=== PATIENT | male | born 1945 | race Caucasian/White ===

== ENCOUNTER 2022-03-05 14:08 | Emergency (ER) | payer OTHER ==
[2022-03-05] MEDS ORDERED: DIAZEPAM 5 MG TABLET ONE (16:33)
[2022-03-05] MEDS ORDERED: HYDROCODONE/APAP 10/325 TAB ONE (16:34)
[2022-03-05 17:12] LABS: Absolute Lymphocytes (CBC) 1.1 K/uL (0.7-4.9); Hematocrit 44.1 % (39.6-49.0); Lymphocytes % 8.6 % (15.3-44.8); MPV 8.6 fL (7.6-11.3)
[2022-03-05 17:29] LABS: Potassium 3.7 mmol/L (3.5-5.1)
--- NOTE | 2022-03-05 17:58 | RAD REPORT ---
EXAM DESCRIPTION: CT - CTHCSPWOC - 03/05/2022 5:42 pm CLINICAL HISTORY: Trauma, head and neck injury. headache, neck pain COMPARISON: CTSTONE PROTOCOL dated 01/18/2015 TECHNIQUE: Axial 5 mm thick images of the head were obtained. Axial 2 mm thick images of the cervical spine were obtained with sagittal and coronal reconstruction images generated and reviewed. All CT scans are performed using dose optimization technique as appropriate and may include automated exposure control or mA/KV adjustment according to patient size. FINDINGS: CT HEAD WITHOUT CONTRAST: No acute hemorrhage, hydrocephalus or extra-axial collection is identified.No areas of brain edema or midline shift. Chronic small vessel ischemic changes. The paranasal sinuses and mastoids are clear.The calvarium is intact. CT CERVICAL SPINE WITHOUT CONTRAST: No fracture or subluxation.No prevertebral soft tissues swelling is identified. Multiple lytic lesion s present within the vertebral bodies are nonaggressive in appearance. Mild cervical spondylosis IMPRESSION: No acute intracranial or cervical spine findings.
[2022-03-05 18:17] LABS: SARS-COV-2 RT PCR NEGATIVE (NEGATIVE)
--- NOTE | 2022-03-05 19:04 | EDPHYS ---
Physician Documentation [facility] Name: Michele Kent Jr Age: 76 yrs Sex: Male : 1945 Arrival Date: 03/05/2022 Time: 14:12 Bed 24 Private MD: MALLIKA Physician Maury Hill HPI: 03/05 16:23 This 76 yrs old Male presents to ER via Ambulatory with complaints of Headache. jmm 16:23 The patient complains of pain to the left temporal area, left muslim and left ear. jmm Onset: The symptoms/episode began/occurred gradually, 3 day(s) ago. Is a 76-year-old male with no chronic medical conditions presents emerged part with complaints of left-sided headache which radiates down his neck and down his left arm. 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 Patient states he will occasionally get similar headaches on the right side but this episode is different in which there is radiation of pain down the neck and left arm. Patient denies chest pain or shortness of breath.. Historical: - Allergies: 16:02 No Known Allergies; vg1 - Home Meds: 16:02 Aspirin Oral [Active]; vg1 - PMHx: 16:02 None; vg1 - Immunization history:: Client reports receiving the 2nd dose of the Covid vaccine. - Social history:: Smoking status: Patient denies any tobacco usage or history of. ROS: 16:23 Constitutional: Negative for fever, chills, and weight loss, Cardiovascular: Negative jmm for chest pain, palpitations, and edema, Respiratory: Negative for shortness of breath, cough, wheezing, and pleuritic chest pain. 16:23 Neuro: Positive for headache. 16:23 All other systems are negative. Exam: 16:23 Constitutional: This is a well developed, well nourished patient who is awake, alert, jmm and in no acute distress. Head/Face: atraumatic. Eyes: EOMI, no conjunctival erythema appreciated ENT: Moist Mucus Membranes 16:23 Chest/axilla: Normal chest wall appearance and motion. Cardiovascular: Regular rate and rhythm. No edema appreciated Respiratory: Normal respirations, no respiratory distress appreciated Abdomen/GI: Non distended Back: Normal ROM Skin: General appearance color normal 16:23 Neck: External neck: tenderness, that is mild, Left paraspinal. 16:23 Musculoskeletal/extremity: ROM: intact in all extremities. 16:23 Skin: Appearance: Color: normal in color. 16:23 Neuro: Orientation: is normal, Mentation: is normal, Memory: is normal. 16:23 Psych: Behavior/mood is pleasant, cooperative. Vital Signs: 15:56 BP 197 / 110 RA; Pulse 90; Resp 18; Temp 98.6; Pulse Ox 97% on R/A; Weight 89.81 kg; vg1 Height 5 ft. 10 in. (177.80 cm); Pain 10/10; 18:37 BP 144 / 90; Pulse 86; Resp 16; Pulse Ox 99% on R/A; Pain 6/10; hb 15:56 Body Mass Index 28.41 (89.81 kg, 177.80 cm) vg1 MDM: 16:23 Patient medically screened. [facility] [place] 19:03 Data reviewed: vital signs, nurses notes. ED course: Patient is alert nontoxic in [facility] appearance in the ED. Patient is afebrile. I do not currently suspect meningitis. CT was negative for any acute process. Patient states he does feel much better. Patient does have increased range of motion of the neck. Symptoms appear most likely musculoskeletal. Patient otherwise given strict return precautions. Patient understands agrees plan of care.. 03/05 16:33 Order name: CBC with Diff; Complete Time: 17:19 [facility] 03/05 16:33 Order name: BMP; Complete Time: 17:38 [facility] 03/05 16:30 Order name: CT Head C Spine; Complete Time: 18:02 [facility] 03/05 17:19 Order name: COVID-19/FLU A+B; Complete Time: 18:28 [facility] 03/05 17:19 Order name: [place] Screen Profile; Complete Time: 18:02 [facility] 03/05 16:33 Order name: Saline Lock; Complete Time: 17:08 [facility] Administered Medications: 16:44 Drug: [place] (HYDROcodone-acetaminophen) 10 mg-325 mg 1 tabs Route: PO; hb 17:08 Follow up: Response: No adverse reaction hb 16:44 Drug: Valium (diazepam) 5 mg Route: PO; hb 17:08 Follow up: Response: No adverse reaction hb Disposition Summary: 03/05/22 19:04 Discharge Ordered Location: Home jmm Condition: Stable jmm Diagnosis - Strain of muscle, fascia and tendon at neck level jmm Followup: jmm - With: Private Physician - When: 2 - 3 days - Reason: Recheck today's complaints, Continuance of care, Re-evaluation by your physician Discharge Instructions: - Discharge Summary Sheet jmm - Cervical Strain and Sprain Rehab-SportsMed jm Forms: - Medication Reconciliation Form [facility] - Thank You Letter [facility] - Antibiotic Education [facility] - Prescription Opioid Use [facility] Prescriptions: - Zanaflex 4 mg Oral Tablet - take 1 tablet by ORAL route every 8 hours As needed; 20 tablet; Refills: 0, [facility] Product Selection Permitted Addendum: 03/07/2022 13:39 Co-signature as Attending Physician, Maury Hill MD I agree with the assessment and c jean-baptiste plan of care. Signatures: Dispatcher [employer] Maury Strickland MD MD cha Mickail, Joel, PA PA jmm Baxter, Heather, RN Kelsy Glass RN RN vg1
--- NOTE | 2022-03-05 19:04 | ER ---
Nurse's Notes [facility] Name: Michele Kent Jr Age: 76 yrs Sex: Male : 1945 Arrival Date: 03/05/2022 Time: 14:12 Bed 24 Private MD: Diagnosis: Strain of muscle, fascia and tendon at neck level Presentation: 03/05 15:56 Chief complaint: Patient states: stiff neck and h/a x 3 days; denies NV. Coronavirus vg1 screen: Vaccine status: Patient reports receiving the 2nd dose of the covid vaccine. Client denies travel out of the [place] in the last 14 days. Ebola Screen: Patient negative for fever greater than or equal to 101.5 degrees Fahrenheit, and additional compatible Ebola Virus Disease symptoms. Initial Sepsis Screen: Does the patient meet any 2 criteria? No. Patient's initial sepsis screen is negative. Does the patient have a suspected source of infection? No. Patient's initial sepsis screen is negative. Risk Assessment: Do you want to hurt yourself or someone else? Patient reports no desire to harm self or others. Onset of symptoms was March 02, 2022. 15:56 Method Of Arrival: Ambulatory vg1 15:56 Acuity: OANH 2 vg1 Triage Assessment: 16:02 Headache History: The patient has had previous headaches and this one is more severe vg1 than previous episodes. General: Appears in no apparent distress. uncomfortable, Behavior is calm, cooperative. Pain: Complains of pain in head and neck Pain currently is 10 out of 10 on a pain scale. Pain began 2-3 days ago. Also complains of no other associated symptoms. Neuro: Level of Consciousness is awake, alert, obeys commands, Oriented to person, place, time, situation, [employer] are equal bilaterally Moves all extremities. Gait is unsteady, Speech is normal, Facial symmetry appears normal, Reports dizziness, headache. Respiratory: Airway is patent Respiratory effort is even, unlabored. GI: Patient currently denies nausea, vomiting. Historical: - Allergies: 16:02 No Known Allergies; vg1 - Home Meds: 16:02 Aspirin Oral [Active]; vg1 - PMHx: 16:02 None; vg1 - Immunization history:: Client reports receiving the 2nd dose of the Covid vaccine. - Social history:: Smoking status: Patient denies any tobacco usage or history of. Screenin:54 Abuse screen: Denies threats or abuse. Denies injuries from another. Nutritional hb screening: No deficits noted. Tuberculosis screening: No symptoms or risk factors identified. Fall Risk None identified. Assessment: 17:08 General: Appears in no apparent distress. Behavior is calm, cooperative. Pain: Pain hb currently is 10 out of 10 on a pain scale. Neuro: Level of Consciousness is awake, alert, obeys commands, Oriented to person, place, time, situation, Reports headache. Cardiovascular: Patient's skin is warm and dry. Respiratory: Respiratory effort is even, unlabored, Respiratory pattern is regular, symmetrical. GI: No signs and/or symptoms were reported involving the gastrointestinal system. : No signs and/or symptoms were reported regarding the genitourinary system. EENT: No signs and/or symptoms were reported regarding the EENT system. Derm: Skin is pink, warm \T\ dry. Musculoskeletal: Reports bilateral neck pain. 18:38 Reassessment: Patient appears in no apparent distress at this time. Patient and/or hb family updated on plan of care and expected duration. Pain level reassessed. Patient is alert, oriented x 3, equal unlabored respirations, skin warm/dry/pink. Vital Signs: 15:56 BP 197 / 110 RA; Pulse 90; Resp 18; Temp 98.6; Pulse Ox 97% on R/A; Weight 89.81 kg; vg1 Height 5 ft. 10 in. (177.80 cm); Pain 10/10; 18:37 BP 144 / 90; Pulse 86; Resp 16; Pulse Ox 99% on R/A; Pain 6/10; hb 15:56 Body Mass Index 28.41 (89.81 kg, 177.80 cm) vg1 ED Course: 14:12 Patient arrived in ED. as 16:02 Triage completed. vg1 16:02 Arm band placed on. vg1 16:18 La Nena Brock, ALEXIA is Primary Nurse. hb 16:22 Cas Barry PA is PHCP. [facility] 16:22 Maury Hill MD is Attending Physician. jmm 17:08 Inserted saline lock: 20 gauge in right forearm, using aseptic technique. Blood hb collected. 17:43 CT Head C Spine In Process Unspecified. EDMS 17:54 Patient has correct armband on for positive identification. hb 19:47 No provider procedures requiring assistance completed. IV discontinued, intact, hb bleeding controlled, No redness/swelling at site. Administered Medications: 16:44 Drug: [place] (HYDROcodone-acetaminophen) 10 mg-325 mg 1 tabs Route: PO; hb 17:08 Follow up: Response: No adverse reaction hb 16:44 Drug: Valium (diazepam) 5 mg Route: PO; hb 17:08 Follow up: Response: No adverse reaction hb Medication: 17:54 VIS not applicable for this client. hb Outcome: 19:04 Discharge ordered by . rosa 19:47 Discharged to home hb 19:47 Condition: stable 19:47 Discharge instructions given to patient, Instructed on discharge instructions, follow up and referral plans. medication usage, Demonstrated understanding of instructions, follow-up care, medications, Prescriptions given X 1. 19:48 Patient left the ED. hb Signatures: Dispatcher [employer] EDMS Cas Barry PA PA jmm Martinez, Amelia as Baxter, Heather, RN RN Kelsy Vigil RN RN vg1
[2022-03-05 20:02] VITALS: TEMP 98.6
[2022-03-05 20:08] VITALS: BP 144/90; O2SAT 99
== END 2022-03-05 19:48 | disposition home or self-care (01) ==
LOC: ER 14:08
DX: S16.1XXA Strain of muscle, fascia and tendon at neck level, initial encounter (principal); Z79.82 Long term (current) use of aspirin
CPT/HCPCS: 85025; 80048; 36415; 86308; 0240U; 70450; 72125; 99284

== ENCOUNTER 2024-04-02 05:05 | Inpatient (IN) | payer OTHER ==
[2024-04-02 05:46] LABS: Absolute Basophils 0.1 K/uL (0-0.5); Absolute Eosinophils 0.1 K/uL (0-0.5); Absolute Lymphocytes (CBC) 1.5 K/uL (0.7-4.9); Absolute Monocytes 0.8 K/uL (0.1-1.3); Absolute Neutrophil 6.2 K/uL (1.8-8.0); Basophils % 0.8 % (0-1.3); Eosinophils % 1.3 % (0-4.4); Hematocrit 32.2 % (39.6-49.0); Lymphocytes % 17.2 % (15.3-44.8); MCH 22.9 pg (27.0-35.0); MCHC 30.9 g/dL (32.0-36.0); MPV 8.6 fL (7.6-11.3); Monocytes % 9.7 % (3.3-12.3); Platelets 275 thou/uL (152-406); RBC Red Blood Cell Count 4.36 M/uL (4.33-5.43); Red Cell Distribution Width 19.6 % (12.1-15.2)
[2024-04-02] MEDS ORDERED: ENOXAPARIN 100 MG/ML SYR SQ ONE (05:59)
[2024-04-02] MEDS ORDERED: DIGOXIN 0.25 MG/ML AMP ONE (05:59)
[2024-04-02] MEDS ORDERED: METOPROLOL TAR 50 MG TAB ONE (05:59)
[2024-04-02] MEDS ORDERED: FUROSEMIDE 40 MG/4 ML VIAL ONE (06:00)
[2024-04-02] MEDS ORDERED: FAMOTIDINE 20 MG/2 ML VIAL IV ONE (06:00)
[2024-04-02] MEDS ORDERED: METOPROLOL TARTRATE 5 MG/5 ML INJ IV ONE (06:00)
[2024-04-02 06:09] LABS: Albumin 2.7 g/dL (3.4-5.0); Albumin/Globulin Ratio 0.6 (1.1-1.8); Anion Gap 11.6 mEq/L (5.0-15.0); Bilirubin Direct 0.2 mg/dL (0-0.2); Bilirubin Indirect, Calculated 0.6 mg/dL (0.2-0.8); Bilirubin Total 0.8 mg/dL (0.2-1.0); Globulin 4.2 g/dL (2.3-3.5); Magnesium 1.7 mg/dL (1.6-2.4); Potassium 3.6 mEq/L (3.5-5.1); Protein, Total 6.9 g/dL (6.4-8.2); Thyroid Stimulating Hormone 1.21 uIU/mL (0.358-3.740); Troponin High Sensitivity 54.5 pg/mL (<58.9)
[2024-04-02 06:13] LABS: PT Prothrombin Time 14.6 SECONDS (9.4-12.5); Protime INR 1.31
--- NOTE | 2024-04-02 06:39 | EDPHYS ---
Physician Documentation [facility] Name: Michele Kent Jr Age: 79 yrs Sex: Male : 1945 Arrival Date: 04/02/2024 Time: 05:05 Bed 7 Private MD: MALLIKA Physician Maury Hill HPI: 04/02 05:44 This 79 yrs old Male presents to ER via Wheelchair with complaints of benita Breathing Difficulty. 05:44 The patient has shortness of breath at rest, with light activity. Onset: The benita symptoms/episode began/occurred 2 week(s) ago. Duration: The symptoms are continuous, and are markedly worse than the original presentation. The patient's shortness of breath is aggravated by exertion, light activity, supine position. Associated signs and symptoms: The patient has no apparent associated signs or symptoms. Severity of symptoms: At their worst the symptoms were moderate in the emergency department the symptoms are unchanged. The patient has experienced similar episodes in the past, several times. Historical: - Allergies: 05:26 No Known Allergies; ha1 - Home Meds: 05:26 Aspirin Oral [Active]; ha1 - PMHx: 05:26 Hypertensive disorder; hard hearing; ha1 - Immunization history:: Adult Immunizations up to date. - Infectious Disease History:: Denies. - Social history:: Smoking status: Patient denies any tobacco usage or history of. ROS: 05:45 Constitutional: Negative for fever, chills, and weight loss, Eyes: Negative for injury, benita pain, redness, and discharge, ENT: Negative for injury, pain, and discharge, Abdomen/GI: Negative for abdominal pain, nausea, vomiting, diarrhea, and constipation, Back: Negative for injury and pain, : Negative for injury, bleeding, discharge, and swelling, MS/Extremity: Negative for injury and deformity, Skin: Negative for injury, rash, and discoloration, Neuro: Negative for headache, weakness, numbness, tingling, and seizure, Psych: Negative for depression, anxiety, suicide ideation, homicidal ideation, and hallucinations, Allergy/Immunology: Negative for hives, rash, and allergies, Endocrine: Negative for neck swelling, polydipsia, polyuria, polyphagia, and marked weight changes, Hematologic/Lymphatic: Negative for swollen nodes, abnormal bleeding, and unusual bruising, 05:45 Neck: Positive for jvd, 05:45 Cardiovascular: Positive for palpitations, 05:45 Respiratory: Positive for shortness of breath, at rest. 05:45 MS/extremity: Positive for swelling, of the right leg and left leg, Exam: 05:45 Constitutional: This is a well developed, well nourished patient who is awake, alert, benita and in no acute distress. Head/Face: Normocephalic, atraumatic. Eyes: Pupils equal round and reactive to light, extra-ocular motions intact. Lids and lashes normal. Conjunctiva and sclera are non-icteric and not injected. Cornea within normal limits. Periorbital areas with no swelling, redness, or edema. ENT: Nares patent. No nasal discharge, no septal abnormalities noted. Tympanic membranes are normal and external auditory canals are clear. Oropharynx with no redness, swelling, or masses, exudates, or evidence of obstruction, uvula midline. Mucous membranes moist. Neck: Trachea midline, no thyromegaly or masses palpated, and no cervical lymphadenopathy. Supple, full range of motion without nuchal rigidity, or vertebral point tenderness. No Meningismus. Respiratory: Lungs have equal breath sounds bilaterally, clear to auscultation and percussion. No rales, rhonchi or wheezes noted. No increased work of breathing, no retractions or nasal flaring. Abdomen/GI: Soft, non-tender, with normal bowel sounds. No distension or tympany. No guarding or rebound. No evidence of tenderness throughout. Back: No spinal tenderness. No costovertebral tenderness. Full range of motion. Male : Normal genitalia with no discharge or lesions. Skin: Warm, dry with normal turgor. Normal color with no rashes, no lesions, and no evidence of cellulitis. MS/ Extremity: Pulses equal, no cyanosis. Neurovascular intact. Full, normal range of motion., bilateral aka Neuro: Awake and alert, GCS 15, oriented to person, place, time, and situation. Cranial nerves II-XII grossly intact. Motor strength 5/5 in all extremities. Sensory grossly intact. Cerebellar exam normal. Normal gait. Psych: Awake, alert, with orientation to person, place and time. Behavior, mood, and affect are within normal limits. 05:45 Chest/axilla: Inspection: normal, Palpation: is normal, Axilla: are normal, Lymph nodes: lymphadenopathy is not appreciated, 05:45 Cardiovascular: Rate: tachycardic, actual rate is 117 bpm, Rhythm: irregularly irregular, Pulses: Pulses are 4+ in bilateral radial, brachial, femoral, popliteal, posterior tibial and and dorsalis pedis arteries.. Heart sounds: normal, normal S1and S2, no S3 or S4, no murmur, no rub, no gallop, Edema: 1+ edema to level of left ankle and right ankle, JVD: is noted bilaterally, to 3 cm, Bilateral blood pressure: is equal, 05:45 ECG was reviewed by the Attending Physician. Vital Signs: 05:05 BP 145 / 113; Pulse 117; Resp 20 S; Temp 97.9(T); Pulse Ox 97% on R/A; Weight 90.26 kg; ha1 Height 5 ft. 9 in. ; 06:05 BP 136 / 94; Pulse 114; Resp 18; Temp 97.9; Pulse Ox 96% ; bm8 06:27 BP 148 / 105; Pulse 119; Resp 18 S; Pulse Ox 98% on R/A; lg3 06:58 BP 165 / 100; Pulse 99; Resp 21; Pulse Ox 99% on R/A; lg3 08:00 BP 139 / 101; Pulse 89; Resp 18; Temp 97.9; Pulse Ox 99% on R/A; ph 05:05 Body Mass Index 29.39 (90.26 kg, 175.26 cm) ha1 Gurinder Coma Score: 06:05 Eye Response: spontaneous(4). Motor Response: obeys commands(6). Verbal Response: bm8 oriented(5). Total: 15. MDM: 05:10 Medical Screening Exam initiated benita 05:50 Differential diagnosis: Anemia Anxiety Reaction asthma, Bronchitis CHF exacerbation, benita Chronic Obstructive Pulmonary Disease arrythmia, dehydration, pneumonia, Pneumothorax pulmonary edema, reactive airway disease, Sepsis Unstable Angina. Antibiotic administration: Not indicated. Differential Diagnosis altered mental status, sepsis, flu. Immunization status: Pneumococcal vaccine: Not up to date due to patient refusal. Influenza vaccine: Not up to date due to patient refusal. Data reviewed: vital signs, nurses notes, lab test result(s), EKG, radiologic studies, plain films. Consideration of Admission/Observation Patient was admitted/placed on observation. Escalation of care including admission/observation considered. I considered the following discharge prescriptions or medication management in the emergency department Medications were administered in the Emergency Department. See MAR. Independent interpretation of the following test(s) in the Emergency Department EKG: See my EKG interpretation above. Test considered but Not performed: Ultrasound no e d echo. Historians other than the Patient: pt well informed. Care significantly affected by the following chronic conditions: Hypertension, [place]. 04/02 05:23 Order name: Basic Metabolic Panel; Complete Time: 06:35 [facility] 04/02 05:23 Order name: CBC with Diff; Complete Time: 06:35 [facility] 04/02 05:23 Order name: LFT's; Complete Time: 06:35 [facility] 04/02 05:23 Order name: Magnesium; Complete Time: 06:35 [facility] 04/02 05:23 Order name: NT PRO-BNP; Complete Time: 06:35 [facility] 04/02 05:23 Order name: PT-INR; Complete Time: 06:35 [facility] 04/02 05:23 Order name: Troponin HS; Complete Time: 06:35 [facility] 04/02 05:23 Order name: TSH; Complete Time: 06:35 [facility] 04/02 05:23 Order name: Lipase; Complete Time: 06:35 [facility] 04/02 05:23 Order name: Urinalysis w/ reflexes; Complete Time: 07:30 [facility] 04/02 05:23 Order name: Flu; Complete Time: 06:52 benita 04/02 05:23 Order name: SARS RAPID; Complete Time: 06:52 [facility] 04/02 05:23 Order name: XRAY Chest (1 view); Complete Time: 07:30 [facility] 04/02 06:45 Order name: Echo with Doppler [facility] 04/02 07:31 Order name: Echo w/ Doppler [facility] 04/02 05:23 Order name: EKG; Complete Time: 05:23 [facility] 04/02 05:23 Order name: Cardiac monitoring; Complete Time: 05:37 [facility] 04/02 05:23 Order name: EKG - Nurse/Tech; Complete Time: 05:27 benita 04/02 05:23 Order name: IV Saline Lock; Complete Time: 05:32 benita 04/02 05:23 Order name: Labs collected and sent; Complete Time: 05:37 [facility] 04/02 05:23 Order name: O2 Per Protocol; Complete Time: 05:37 [facility] 04/02 05:23 Order name: O2 Sat Monitoring; Complete Time: 05:37 benita EC:45 Rate is 125 beats/min. Rhythm is irregularly irregular. QRS [place] is Normal. UT interval benita is normal. QRS interval is normal. QT interval is normal. No Q waves. T waves are Normal. No ST changes noted. Clinical impression: Atrial Fibrillation and No evidence of ischemia. Interpreted by me. Reviewed by me. Administered Medications: 05:33 CANCELLED (Duplicate Order): ns 0.9% 500 ml 500 ml IV at 125 ml/hr once benita 06:13 Drug: Digoxin IVP 0.5 mg IVP once Route: IVP; Site: right antecubital; lg3 06:51 Follow up: Response: No adverse reaction lg3 06:13 Drug: Metoprolol IVP 5 mg IVP once; Hold for SBP <100 or HR <60. Route: IVP; Site: lg3 right antecubital; 06:51 Follow up: Response: No adverse reaction lg3 06:13 Drug: Metoprolol PO 50 mg PO once Route: PO; lg3 06:51 Follow up: Response: No adverse reaction lg3 06:13 Drug: Furosemide IVP 40 mg IVP once; give over 2 minutes Route: IVP; Site: right lg3 antecubital; 06:51 Follow up: Response: No adverse reaction lg3 06:13 Drug: Famotidine IVP 20 mg IVP once; dilute with 10 mL 0.9% NaCl; give over 2 minutes lg3 Route: IVP; Site: right antecubital; 06:51 Follow up: Response: No adverse reaction lg3 06:13 Drug: Enoxaparin Sub-Q 90 mg Sub-Q once Route: Sub-Q; Site: abdomen; lg3 06:51 Follow up: Response: No adverse reaction lg3 06:50 Drug: Magnesium Sulfate IVPB 1 grams IVPB once over 1 hrs Route: IVPB; Infused Over: 1 lg3 hrs; Site: right antecubital; 08:00 Follow up: Response: No adverse reaction; IV Status: Completed infusion ph 06:50 Drug: Oseltamivir PO 75 mg PO once Route: PO; lg3 06:51 Follow up: Response: No adverse reaction lg3 Disposition Summary: 04/02/24 06:38 Hospitalization Ordered Notes: Hospitalization Status: Inpatient Admission [facility] Provider: Joseph Del Cid cha Location: Telemetry/MedSurg (Inpatient) benita Condition: Fair benita Problem: new benita Symptoms: have improved benita Bed/Room Type: Standard [facility] Room Assignment: 214(04/02/24 07:28) bd Diagnosis - Chronic combined systolic (congestive) and diastolic (congestive) heart failure benita - Persistent atrial fibrillation - W RVR, NEW O[place] benita - Essential (primary) hypertension benita - Pleural effusion in other conditions classified elsewhere benita - Unspecified kidney failure benita - Influenza due to other identified influenza virus with other respiratory benita manifestations - INFLUENZA B Forms: - Medication Reconciliation Form benita - SBAR form benita - Leadership Thank You Letter benita Signatures: Dispatcher [employer] EDMS Yoko Bey Corey, MD MD cha Able, Yessenia RN RN lg3 Eliana Rodas, RN RN ha1 Raquel Velazquez RN ph Corrections: (The following items were deleted from the chart) 05:23 05:23 BASIC METABOLIC PANEL+C.LAB.BRZ ordered. EDMS EDMS 05:23 05:23 CBC+H.LAB.BRZ ordered. EDMS EDMS 05:23 05:23 HEPATIC FUNCTION+C.LAB.BRZ ordered. EDMS EDMS 05:23 05:23 MAGNESIUM+C.LAB.BRZ ordered. EDMS EDMS 05:23 05:23 PROBNP+C.LAB.BRZ ordered. EDMS EDMS 05:23 05:23 PROTIME (+INR)+COAG.LAB.BRZ ordered. EDMS EDMS 05:23 05:23 Troponin High Sensitivity+C.LAB.BRZ ordered. EDMS EDMS 05:23 05:23 THYROID STIMULAT HORMONE+C.LAB.BRZ ordered. EDMS EDMS 05:23 05:23 LIPASE+C.LAB.BRZ ordered. EDMS EDMS 05:23 05:23 Urinalysis+U.LAB.BRZ ordered. EDMS EDMS 05:23 05:23 Influenza Screen (A \T\ B)+BA.LAB.BRZ ordered. EDMS EDMS 05:23 05:23 SARS-COV-2 Antigen Rapid+I.LAB.BRZ ordered. EDMS EDMS 05:33 05:23 NS 0.9% IV 500 ml 500 ml IV at 125 ml/hr once ordered. benita benita 07:28 06:38 benita bd
--- NOTE | 2024-04-02 06:39 | ER ---
Nurse's Notes [facility] Name: Michele Kent Jr Age: 79 yrs Sex: Male : 1945 Arrival Date: 04/02/2024 Time: 05:05 Bed 7 Private MD: Diagnosis: Chronic combined systolic (congestive) and diastolic (congestive) heart failure;Persistent atrial fibrillation-W RVR, NEW ONSET;Essential (primary) hypertension;Pleural effusion in other conditions classified elsewhere;Unspecified kidney failure;Influenza due to other identified influenza virus with other respiratory manifestations-INFLUENZA B Presentation: 04/02 05:05 Chief complaint: Patient states: shortness of breath for the past two weeks. ha1 05:05 Coronavirus screen: Client denies travel out of the [place] in the last 14 days. Ebola ha1 Screen: No symptoms or risks identified at this time. Initial Sepsis Screen: Does the patient meet any 2 criteria? No. Patient's initial sepsis screen is negative. Does the patient have a suspected source of infection? No. Patient's initial sepsis screen is negative. Risk Assessment: Do you want to hurt yourself or someone else? Patient reports no desire to harm self or others. Onset of symptoms was April 02, 2024. 05:05 Method Of Arrival: Wheelchair ha1 05:05 Acuity: OANH 2 ha1 Triage Assessment: 05:05 General: Appears uncomfortable, Behavior is calm, cooperative. Pain: Denies pain. ha1 Neuro: Level of Consciousness is awake, alert, obeys commands, Oriented to person, place, time, situation. Cardiovascular: Capillary refill < 3 seconds Patient's skin is warm and dry. Respiratory: Reports shortness of breath at rest on exertion Airway is patent Respiratory effort is even, unlabored, Respiratory pattern is regular, symmetrical, Onset: The symptoms/episode began/occurred gradually, the patient has moderate shortness of breath. GI: No signs and/or symptoms were reported involving the gastrointestinal system. : No signs and/or symptoms were reported regarding the genitourinary system. Derm: Skin is pink, warm \T\ dry. Musculoskeletal: Circulation, motion, and sensation intact. Historical: - Allergies: 05:26 No Known Allergies; ha1 - Home Meds: 05:26 Aspirin Oral [Active]; ha1 - PMHx: 05:26 Hypertensive disorder; hard hearing; ha1 - Immunization history:: Adult Immunizations up to date. - Infectious Disease History:: Denies. - Social history:: Smoking status: Patient denies any tobacco usage or history of. Screenin:28 [facility] ED Fall Risk Assessment (Adult). Abuse screen: Denies threats or abuse. Denies ha1 injuries from another. Nutritional screening: No deficits noted. Tuberculosis screening: No symptoms or risk factors identified. 05:35 [facility] ED Fall Risk Assessment (Adult) History of falling in the last 3 months, lg3 including since admission No falls in past 3 months (0 pts) Confusion or Disorientation No (0 pts) Intoxicated or Sedated No (0 pts) Impaired Gait No (0 pts) Mobility Assist Device Used No (0 pt) Altered Elimination No (0 pt) Score/Fall Risk Level 0 - 2 = Low Risk Oriented to surroundings, Maintained a safe environment, Educated pt \T\ family on fall prevention, incl call for assistance when getting out of bed, Assessed \T\ reinforced patient's understanding of fall precautions, Provided non-skid footwear. Assessment: 05:35 General: Appears in no apparent distress. comfortable, Behavior is calm, cooperative. lg3 Pain: Denies pain. Neuro: No deficits noted. Espinosa Agitation-Sedation Scale (RASS): 0 - Alert and Calm Level of Consciousness is awake, alert, obeys commands, Oriented to person, place, time, situation. Cardiovascular: Reports shortness of breath, Capillary refill < 3 seconds Clubbing of nail beds is absent JVD is absent Patient's skin is warm and dry. Rhythm is atrial fibrillation. Respiratory: Reports shortness of breath at rest on exertion Airway is patent Trachea midline Respiratory effort is even, unlabored, Respiratory pattern is regular, symmetrical, Breath sounds are clear bilaterally. GI: No deficits noted. No signs and/or symptoms were reported involving the gastrointestinal system. Abdomen is round non-distended. : No signs and/or symptoms were reported regarding the genitourinary system. EENT: No deficits noted. No signs and/or symptoms were reported regarding the EENT system. Derm: No deficits noted. No signs and/or symptoms reported regarding the dermatologic system. Skin is intact, is healthy with good turgor, Skin is dry, Skin is normal, Skin temperature is warm. Musculoskeletal: No deficits noted. No signs and/or symptoms reported regarding the musculoskeletal system. Circulation, motion, and sensation intact. Range of motion: intact in all extremities. 06:28 Reassessment: Patient appears in no apparent distress at this time. No changes from lg3 previously documented assessment. Patient and/or family updated on plan of care and expected duration. Pain level reassessed. Patient is alert, oriented x 3, equal unlabored respirations, skin warm/dry/pink. 07:30 Reassessment: Patient appears in no apparent distress at this time. Patient and/or ph family updated on plan of care and expected duration. Pain level reassessed. Patient is alert, oriented x 3, equal unlabored respirations, skin warm/dry/pink. Vital Signs: 05:05 BP 145 / 113; Pulse 117; Resp 20 S; Temp 97.9(T); Pulse Ox 97% on R/A; Weight 90.26 kg; ha1 Height 5 ft. 9 in. ; 06:05 BP 136 / 94; Pulse 114; Resp 18; Temp 97.9; Pulse Ox 96% ; bm8 06:27 BP 148 / 105; Pulse 119; Resp 18 S; Pulse Ox 98% on R/A; lg3 06:58 BP 165 / 100; Pulse 99; Resp 21; Pulse Ox 99% on R/A; lg3 08:00 BP 139 / 101; Pulse 89; Resp 18; Temp 97.9; Pulse Ox 99% on R/A; ph 05:05 Body Mass Index 29.39 (90.26 kg, 175.26 cm) ha1 Gurinder Coma Score: 06:05 Eye Response: spontaneous(4). Motor Response: obeys commands(6). Verbal Response: bm8 oriented(5). Total: 15. ED Course: 05:06 Patient arrived in ED. ra3 05:10 Maury Hill MD is Attending Physician. benita 05:20 Inserted saline lock: 20 gauge in right antecubital area, using aseptic technique. ha1 Blood collected. Flushed with 10 mL NS. 05:20 EKG done, by ED staff, reviewed by Maury Hill MD. lg3 05:26 Triage completed. ha1 05:35 Initial lab(s) drawn, by tx, sent to lab. Patient maintains SpO2 saturation greater lg3 than 95% on room air. 05:35 Patient has correct armband on for positive identification. Placed in gown. Bed in low lg3 position. Call light in reach. Side rails up X 1. Client placed on continuous cardiac and pulse oximetry monitoring. NIBP monitoring applied. security monitor on. Door closed. Noise minimized. Warm blanket given. Pillow given. 05:37 Lipase Sent. lg3 05:37 TSH Sent. lg3 05:37 CBC with Diff Sent. lg3 05:37 LFT's Sent. lg3 05:37 Magnesium Sent. lg3 05:37 NT PRO-BNP Sent. lg3 05:37 PT-INR Sent. lg3 05:37 Troponin HS Sent. lg3 05:45 XRAY Chest (1 view) In Process Unspecified. EDMS 05:50 COVID swab sent to lab. Flu and/or RSV swab sent to lab. oe 05:55 SARS RAPID Sent. oe 05:55 Flu Sent. oe 06:37 Joseph Del Cid is Hospitalizing Provider. benita 06:51 Urinalysis w/ reflexes Sent. lg3 08:35 No provider procedures requiring assistance completed. Patient admitted, IV remains in ph place. 08:35 Arm band placed on. ph Administered Medications: 05:33 CANCELLED (Duplicate Order): ns 0.9% 500 ml 500 ml IV at 125 ml/hr once benita 06:13 Drug: Digoxin IVP 0.5 mg IVP once Route: IVP; Site: right antecubital; lg3 06:51 Follow up: Response: No adverse reaction lg3 06:13 Drug: Metoprolol IVP 5 mg IVP once; Hold for SBP <100 or HR <60. Route: IVP; Site: lg3 right antecubital; 06:51 Follow up: Response: No adverse reaction lg3 06:13 Drug: Metoprolol PO 50 mg PO once Route: PO; lg3 06:51 Follow up: Response: No adverse reaction lg3 06:13 Drug: Furosemide IVP 40 mg IVP once; give over 2 minutes Route: IVP; Site: right lg3 antecubital; 06:51 Follow up: Response: No adverse reaction lg3 06:13 Drug: Famotidine IVP 20 mg IVP once; dilute with 10 mL 0.9% NaCl; give over 2 minutes lg3 Route: IVP; Site: right antecubital; 06:51 Follow up: Response: No adverse reaction lg3 06:13 Drug: Enoxaparin Sub-Q 90 mg Sub-Q once Route: Sub-Q; Site: abdomen; lg3 06:51 Follow up: Response: No adverse reaction lg3 06:50 Drug: Magnesium Sulfate IVPB 1 grams IVPB once over 1 hrs Route: IVPB; Infused Over: 1 lg3 hrs; Site: right antecubital; 08:00 Follow up: Response: No adverse reaction; IV Status: Completed infusion ph 06:50 Drug: Oseltamivir PO 75 mg PO once Route: PO; lg3 06:51 Follow up: Response: No adverse reaction lg3 Medication: 08:35 VIS not applicable for this client. ph Outcome: 06:38 Decision to Hospitalize by Provider. [facility] 08:36 Admitted to Tele accompanied by tech, via wheelchair, with chart, ph 08:36 Condition: stable 08:36 Instructed on the need for admit, 08:36 Patient left the ED. ph Signatures: Dispatcher [employer] EDMaury Bowling MD MD cha Hall, Patricia, RN RN Kavon Rizzo Lacie, RN RN lg3 Eliana Rodas RN RN ha1 Keli Lindsay ra3 Pedro Espinal RN RN bm8 Corrections: (The following items were deleted from the chart) 05:36 05:29 [facility] ED Fall Risk Assessment (Adult) Altered Elimination ha1 lg3
[2024-04-02 06:41] LABS: SARS-CoV-2 Antigen CONTROL BLUE LINE VIS/BG OK; SARS-CoV-2 Antigen Rapid Res Negative (Negative)
[2024-04-02] MEDS ORDERED: MAGNESIUM SULFATE 1 gm IVPB 1 GM/100 ML BAG IV ONE (06:44)
[2024-04-02] MEDS ORDERED: OSELTAMIVIR 75 MG CAP PO ONE (06:50)
[2024-04-02 07:05] LABS: Specific Gravity 1.011 (1.005-1.030); Sqamous Epithelial <5 /HPF (None Seen); Urine Bacteria None Seen /HPF (<20); Urine Bilirubin NEGATIVE (Negative); Urine Blood Negative (Negative); Urine Clarity Turbid (Clear); Urine Color Light-Yellow (Yellow); Urine Culture Reflex Order NOT NEEDED; Urine Glucose NEGATIVE (Negative); Urine Ketones NEGATIVE (Negative); Urine Microscopic Reflex YN ORDER UMIC; Urine Mucus Slight /HPF (None Seen); Urine Nitrite NEGATIVE (Negative); Urine Protein 1+ (Negative); Urine RBC <5 /HPF (None Seen); Urine Urobilinogen Normal (Normal); Urine WBC <5 /HPF (<5); Urine pH 5.5 (5.0-7.0)
--- NOTE | 2024-04-02 07:09 | RAD REPORT ---
EXAM: XR Chest, 1 View CLINICAL HISTORY: The patient is 79 years old and is Male; COUGH TECHNIQUE: Frontal view of the chest. COMPARISON: No relevant prior studies available. FINDINGS: Lungs: Mildly prominent interstitial markings. Hazy right basilar opacification. Pleural space: Blunting of the right costophrenic angle which may indicate a right pleural effusi on. No pneumothorax. Heart: Unremarkable. Mediastinum: Unremarkable. Normal mediastinal contour. Bones/joints: No acute findings. IMPRESSION: 1. Mildly prominent interstitial markings. 2. Blunting of the right costophrenic angle which may indicate a right pleural effusion. 3. Hazy right basilar opacification. Electronically signed by: Antonio Baker MD 04/02/2024 06:27 AM [facility] 8 Due to temporary technical issues with the PACS/HomeV[employer] reporting system, reports are being preeti d by the in-house radiologist without review as a courtesy to ensure prompt reporting the interpreting radiologist is fully responsible for the content of the report. Transcribed Date/Time: 04/02/2024 7:09 AM
--- NOTE | 2024-04-02 08:28 | P.HP ---
Certification for Inpatient Patient admitted to: Inpatient With expected LOS: >2 Midnights Patient will require the following post-hospital care: None Practitioner: I am a practitioner with admitting privileges, knowledge of patient current condition, hospital course, and medical plan of care. Services: Services provided to patient in accordance with Admission requirements found in Title 42 Section 412.3 of the Code of Federal Regulations Patient History Date of Service: 04/02/24 Reason for admission: New onset CHF/A-fib History of Present Illness: Otherwise healthy 79-year-old male presents to the emergency department with 3- week history of dyspnea on exertion, paroxysmal nocturnal dyspnea. He has no known medical history and takes no medications daily. He denies having any recent testing with PCP or cardiology, has never had an echo, possibly had a stress test many years ago, has never had a heart catheterization. He was evaluated in the emergency department his labs are significant for a BNP of 3880 creatinine 1.59 GFR 44 glucose 110 chest x-ray showed mildly prominent interstitial markings, blunting of the right costophrenic angle which may indicate a right pleural effusion, hazy right basilar opacification. On exam patient with 1-2+ pitting edema of the lower extremities, also noted to be in new onset atrial fibrillation with rapid ventricular response. In the ER he was given metoprolol, Lasix, therapeutic Lovenox, he will be admitted for suspected new onset CHF and new onset A-fib - Past Medical/Surgical History -: None -: Right leg traumatic injury -: Kidney stone removal Psychosocial/ Personal History: Lives at home, alone. - Family History Brother -: Heart disease Father -: Lung disease - Social History Smoking Status: Never smoker Alcohol use: No CD- Drugs: No Caffeine use: Yes Place of Residence: Home Review of Systems 10-point ROS is otherwise unremarkable Respiratory: SOB with Excertion Cardiovascular: Paroxysmal Noc. Dyspnea, Edema Physical Examination - Physical Exam General: Alert, In no apparent distress, Oriented x3 HEENT: Atraumatic, PERRLA, EOMI Neck: Supple, 2+ carotid pulse no bruit, No LAD, Without JVD or thyroid abnormality Respiratory: Clear to auscultation bilaterally, Normal air movement Cardiovascular: Edema, Irregular heart rate/rhythm Gastrointestinal: Normal bowel sounds, No tenderness Musculoskeletal: No tenderness Integumentary: No rashes Neurological: Normal speech, Normal strength at 5/5 x4 extr, Normal tone, Normal affect - Studies Laboratory Data (last 24 hrs) 04/02/24 04/02/24 04/02/24 05:33 05:33 05:33 WBC 8.80 Hgb 10.0 L Hct 32.2 L Plt Count 275 PT 14.6 H INR 1.31 Sodium 140 Potassium 3.6 BUN 24 H Creatinine 1.59 H Glucose 110 H Magnesium 1.7 Total Bilirubin 0.8 AST 11 L ALT 18 Alkaline Phosphatase 69 Lipase 68 Microbiology Data (last 24 hrs): 04/02/24 05:45 Nasopharnyx Influenza Type A Antigen Screen - Final 04/02/24 05:45 Nasopharnyx Influenza Type B Antigen Screen - Final Assessment and Plan - Plan Assessment: New onset A-fib with RVR Acute CHFunknown EF New onset hypertension Renal insufficiency versus DIRK Plan: New onset A-fib with RVR Acute CHFunknown EF New onset hypertension Renal insufficiency versus DIRK Echocardiogram, cardiology consult Therapeutic Lovenox Continue metoprolol, IV Lasix Recheck chemistry daily, trend troponin Monitor on telemetry Appreciate further per from cardiology Consider nephrology consult if renal function worsening DVT PPX: Therapeutic Lovenox Code status: Full Discharge Plan: Home Plan to discharge in: 48 Hours - Advance Directives Does patient have a Living Will: No Does patient have a Durable POA for Healthcare: No - Code Status/Comfort Care Code Status Assessed: Yes (Full code) Critical Care: No Time Spent Managing Pts Care (In Minutes): 62
[2024-04-02] MEDS ORDERED: ACETAMINOPHEN 325 MG TABLET PO PRN (09:47)
[2024-04-02] MEDS: ASPIRIN EC 81 MG TAB PO SCH (09:56)
[2024-04-02 10:32] VITALS: BMI 29.3
[2024-04-02] MEDS: SOTALOL HCL 80 MG TAB PO SCH (10:34)
--- NOTE | 2024-04-02 11:27 | P.CNS ---
Date of Consult: 04/02/24 Chief Complaint: New onset CHF/A-fib History of Present Illness: Patient with No significant PMH presented with worsening SOB and FORRESTER, denies chest pain, no syncope, no dizzy spells, no syncope. Allergies No Known Allergies Allergy (Verified 04/02/24 09:47) Home medications list reviewed: Yes Home Medications: NK [No Home Meds] 04/02/24 - Past Medical/Surgical History Diabetic: No -: None -: Right leg traumatic injury -: Kidney stone removal Psychosocial/ Personal History: Lives at home, alone. - Family History Brother Medical History: Heart disease Father Medical History: Lung disease - Social History Smoking Status: Never smoker Alcohol use: No CD- Drugs: No Caffeine use: Yes Place of Residence: Home Review of Systems 10-point ROS is otherwise unremarkable Physical Examination Temp Pulse Resp BP Pulse Ox 97.7 F 91 H 16 164/106 H 96 04/02/24 08:35 04/02/24 08:35 04/02/24 08:35 04/02/24 08:35 04/02/24 08:35 General: Alert, In no apparent distress HEENT: Atraumatic, PERRLA, Mucous membr. moist/pink, EOMI, Sclerae nonicteric Neck: Supple, 2+ carotid pulse no bruit, No LAD, Without JVD or thyroid abnormality Respiratory: Clear to auscultation bilaterally, Normal air movement Cardiovascular: Edema, Irregular heart rate/rhythm Gastrointestinal: Normal bowel sounds, No tenderness Musculoskeletal: No tenderness Integumentary: No rashes Neurological: Normal gait, Normal speech, Normal tone, Normal affect Lymphatics: No axilla or inguinal lymphadenopathy Laboratory Data (last 24 hrs) 04/02/24 04/02/24 04/02/24 05:33 05:33 05:33 WBC 8.80 Hgb 10.0 L Hct 32.2 L Plt Count 275 PT 14.6 H INR 1.31 Sodium 140 Potassium 3.6 BUN 24 H Creatinine 1.59 H Glucose 110 H Magnesium 1.7 Total Bilirubin 0.8 AST 11 L ALT 18 Alkaline Phosphatase 69 Lipase 68 - Problems (1) Atrial fibrillation Current Visit: Yes Status: Acute Plan: new onset, patient started on Sotalol 80 mg po BID (ekg AFTER 3RD DOSE) Start patient on therapeutic Heparin drip continue metoprolol 50 mg po BID NPO after midnight for MARLI DCCV in am. (2) SOB (shortness of breath) Current Visit: Yes Status: Acute Plan: Lasix 40 mg IV BID Monitor input and output and electrolytes. get Echo.
[2024-04-02] MEDS: FUROSEMIDE 40 MG/4 ML VIAL IV SCH (16:47)
[2024-04-02] MEDS: ENOXAPARIN 100 MG/ML SYR SQ SCH (16:48)
[2024-04-02] MEDS ORDERED: FUROSEMIDE 20 MG/ 2ML VIAL IV SCH (17:00)
[2024-04-02] MEDS: METOPROLOL TAR 50 MG TAB PO SCH (20:17)
[2024-04-03 06:12] LABS: Absolute Basophils 0.1 K/uL (0-0.5); Absolute Eosinophils 0.1 K/uL (0-0.5); Absolute Lymphocytes (CBC) 1.3 K/uL (0.7-4.9); Absolute Monocytes 0.9 K/uL (0.1-1.3); Absolute Neutrophil 7.8 K/uL (1.8-8.0); Basophils % 0.7 % (0-1.3); Eosinophils % 0.5 % (0-4.4); Hematocrit 28.3 % (39.6-49.0); Hemoglobin 8.9 g/dL (13.6-17.9); Lymphocytes % 13.1 % (15.3-44.8); MCH 22.9 pg (27.0-35.0); MCHC 31.4 g/dL (32.0-36.0); MCV 73.1 fL (80-100); MPV 8.9 fL (7.6-11.3); Monocytes % 9.3 % (3.3-12.3); Neutrophils % 76.4 % (41.7-73.7); Nucleated Red Blood Cells % 0.2 % (0-0); Platelets 245 thou/uL (152-406); RBC Red Blood Cell Count 3.87 M/uL (4.33-5.43)
[2024-04-03 06:24] LABS: Anion Gap 9.3 mEq/L (5.0-15.0); Magnesium 1.8 mg/dL (1.6-2.4); Potassium 3.3 mEq/L (3.5-5.1)
[2024-04-03] MEDS: NA CHLORIDE 0.9% 500 ML ONE (07:21)
[2024-04-03] MEDS ORDERED: LIDOCAINE 2% MPF 5 ML VIAL ONE (07:37)
[2024-04-03] MEDS ORDERED: propofoL 200 MG/20 ML VIAL IV ONE ×2 (07:37→08:40)
[2024-04-03] MEDS: MAGNESIUM SULFATE 1 gm IVPB 1 GM/100 ML BAG IV ONE (08:00)
[2024-04-03] MEDS: POTASSIUM CL SA 10 MEQ TAB PO ONE ×2 (10:29→20:41)
--- NOTE | 2024-04-03 11:12 | P.PN ---
Subjective Date of Service: 04/03/24 Chief Complaint: New onset CHF/A-fib Subjective: No new changes, No C/O voiced, Tolerating diet, Ambulating, Improving Review of Systems 10-point ROS is otherwise unremarkable Physical Examination - Vital Signs Temperature: 97.5 F Blood Pressure: 94/60 Pulse: 57 Respirations: 16 Pulse Ox (%): 93 - Physical Exam General: Alert, In no apparent distress HEENT: Atraumatic, PERRLA, EOMI Neck: Supple, JVD not distended Respiratory: Clear to auscultation bilaterally, Normal air movement Cardiovascular: Regular rate/rhythm, Normal S1 S2 Gastrointestinal: Normal bowel sounds, No tenderness Musculoskeletal: No tenderness Integumentary: No rashes Neurological: Normal speech, Normal tone, Normal affect Lymphatics: No axilla or inguinal lymphadenopathy - Studies Microbiology Data (last 24 hrs): 04/02/24 05:45 Nasopharnyx Influenza Type A Antigen Screen - Final 04/02/24 05:45 Nasopharnyx Influenza Type B Antigen Screen - Final Medications List Reviewed: Yes Assessment And Plan - Current Problems (Diagnosis) (1) Atrial fibrillation Current Visit: Yes Status: Acute Plan: Patient is s/p MARLI DCCV. continue Sotalol 80 mg po BID (ekg AFTER 3RD DOSE). stop lopressor as patient HR is in the 50s. start Eliquis 5 mg po BID (2) Acute combined systolic and diastolic heart failure Current Visit: Yes Status: Acute Plan: Patient Echo shows mild reduced LV function, most likely secondary to arrhythmia continue Lasix 40 mg IV BID Continue to montior input and output and electrolytes will repeat echo in 4 weeks, if EF still low then will need ischemia evaluation. if HR better in am then consider starting Coreg 3.125 mg po BID and will consider starting LOLA inhibitors depending on kidney function.
--- NOTE | 2024-04-03 12:03 | P.PN ---
Date of Service: 04/03/24 Subjective: No acute events overnight S/P MARLI cardioversion Dyspnea improving ROS: 10 point ROS as noted above, otherwise negative Physical exam GEN: Alert, oriented, NAD HEENT: Normal conjunctiva, sclera anicteric CV: Regular rate and rhythm, 1-2+ edema to SYEDA LE Pulm: Nonlabored respirations on room air ABD: Soft, nontender, nondistended MSK: No joint tenderness Integumentary: No rashes Neuro: Normal speech, normal affect Vitals reviewed Assessment: New onset A-fib with RVR Acute CHFunknown EF New onset hypertension Renal insufficiency versus DIRK Plan: New onset A-fib with RVR S/P MARLI cardioversion now in NSR Acute systolic CHF New onset hypertension Renal insufficiency versus DIKR Echo results: Ejection fraction 40-45%, mild global hyopkinesis. Moderate pulmonery hypertension. Elevated right atrial filling pressure 15-50 mmHg. Mild mitral regurgitation. Start eliquis Continue Sotalol, IV Lasix Monitor on telemetry Consider nephrology consult if renal function worsening Urinary Retention Ya placed Start flomax Will try to remove ya tomorrow morning DVT PPX: Eliquis Code status: Full Discharge Plan: Home Plan to discharge in: 48 Hours Time Spent Managing Pts Care (In Minutes): 35
--- NOTE | 2024-04-03 13:50 | OP ---
Date of Procedure: 04/03/2024 Surgeon: Tad Ferguson Procedure Performed: Synchronized transesophageal echocardiogram cardioversion. Indication For Procedure: Atrial fibrillation. Complications: None. Estimated Blood Loss: None. Sedation: Done by Anesthesia team. Description Of Procedure: After risks, and benefits, and alternatives were explained to the patient, patient agreed to proceed with the procedure and signed informed consent. The patient was brought b ack to the OR. A time-out was performed. Sedation was done by Anesthesia team. Next, the MARLI probe was inserted, images were obtained, and then MARLI probe was removed out. After that, synchronized ca rdioversion was done with 200 joules. The patient was converted back into sinus rhythm. Then patien t was moved back to Recovery in stable condition. Assessment And Plan: Atrial fibrillation, status post transesophageal echocardiogram cardioversion. Plan will be: 1.Continue sotalol 80 mg p.o. b.i.d. 2.Continue Eliquis 5 mg p.o. b.i.d. ELSY/MARTHA Voice ID: [id number] Report ID: [id number]
--- NOTE | 2024-04-03 14:52 | TEE ---
TRANSESOPHAGEAL ECHOCARDIOGRAM REPORT CARDIOLOGY DEPARTMENT DATE OF STUDY: 04/03/2024 HEIGHT: 5'9 WEIGHT: 199 DIAGNOSIS: ATRIAL FIBRILLATION COMMENTS: 1. NORMAL LEFT ATRIAL APPENDAGE. NO THROMBUS SEEN. 2. MILDLY DILATED LEFT ATRIUM. 3. MILD MITRAL REGURGITATION. TECHNOLOGIST: BOBBY GOSS
--- NOTE | 2024-04-03 14:58 | ECHO ---
HEIGHT: 5 ft 9 in WEIGHT: 199 lb 0 oz DATE OF STUDY: 04/02/[address]: Gilberto Haas NP 2-DIMENSIONAL: YES M.MODE: YES DOPPLER: YES COLOR FLOW: YES TDS: NO PORTABLE: YES DEFINITY: NO BUBBLE STUDY: NO DIAGNOSIS: NEW ATRIAL FIBRILLATION, POSSIBLE CONGESTIVE HEART FAILURE CARDIAC HISTORY: CATHERIZATION: NO SURGERY: NO PROSTHETIC VALVE: NO PACEMAKER: NO MEASUREMENTS (cm) DIASTOLIC (NORMALS) SYSTOLIC (NORMALS) IVSd 1.4 (0.6-1.2) LA Diam 3.6 (1.9-4.0) LVEF 40-45% LVIDd 4.2 (3.5-5.7) LVIDs 3.3 (2.0-3.5) %FS 20% LVPWd 1.4 (0.6-1.2) Ao Diam 2.8 (2.0-3.7) 2 DIMENSIONAL ASSESSMENT: RIGHT ATRIUM: NORMAL LEFT ATRIUM: MODERATELY DILATED RIGHT VENTRICLE: NORMAL LEFT VENTRICLE: NORMAL TRICUSPID VALVE: MODERATE TRICUSPID REGURGITATION MITRAL VALVE: MILD MITRAL REGURGITATION PULMONIC VALVE: NORMAL AORTIC VALVE: NORMAL, TRACE AORTIC REGURGITATION PERICARDIAL EFFUSION: NONE AORTIC ROOT: NORMAL LEFT VENTRICULAR WALL MOTION: MILD GLOBAL HYPOKINESIS. DOPPLER/COLOR FLOW: DIASTOLIC DYSFUNCTION. COMMENTS: 1. MODERATELY DILATED LEFT ATRIUM. 2. MILDLY REDUCED LEFT VENTRICULAR SYSTOLIC FUNCTION. LEFT VENTRICULAR EJECTION FRACTION 40-45%. MILD GLOBAL HYPOKINESIS. 3. DIASTOLIC DYSFUNCTION. 4. MODERATE PULMONARY HYPERTENSION. RIGHT VENTRICULAR SYSTOLIC PRESSURE 50-55 mmHg. 5. ELEVATED FILLING PRESSURES. RIGHT ATRIAL PRESSURE 15-20 mmHg. 6. MILD MITRAL REGURGITATION. TECHNOLOGIST: BOBBY GOSS
[2024-04-03] MEDS: APIXABAN 5 MG TABLET PO SCH (20:41)
[2024-04-03] MEDS: TAMSULOSIN 0.4 MG SR CAP PO SCH (20:41)
[2024-04-04 04:44] LABS: Absolute Eosinophils 0.1 K/uL (0-0.5); Absolute Lymphocytes (CBC) 1.4 K/uL (0.7-4.9); Absolute Monocytes 0.9 K/uL (0.1-1.3); Absolute Neutrophil 5.6 K/uL (1.8-8.0); Basophils % 0.6 % (0-1.3); Eosinophils % 1.6 % (0-4.4); Hematocrit 28.5 % (39.6-49.0); Lymphocytes % 17.6 % (15.3-44.8); MCHC 31.5 g/dL (32.0-36.0); MPV 8.8 fL (7.6-11.3); Monocytes % 10.7 % (3.3-12.3); Neutrophils % 69.5 % (41.7-73.7); Platelets 248 thou/uL (152-406); Red Cell Distribution Width 19.1 % (12.1-15.2)
[2024-04-04 04:47] LABS: Anion Gap 7.8 mEq/L (5.0-15.0); Magnesium 1.8 mg/dL (1.6-2.4); Potassium 3.8 mEq/L (3.5-5.1)
[2024-04-04 05:53] VITALS: O2SAT 98
[2024-04-04 07:27] LABS: Ferritin 8.2 ng/mL (26-388)
--- NOTE | 2024-04-04 08:56 | P.CNS ---
Date of Consult: 04/04/24 Reason for Consult: DIRK vs CKD Requesting Physician: Fran Keith Chief Complaint: New onset CHF/A-fib History of Present Illness: Otherwise healthy 79-year-old male presents to the emergency department with 3- week history of dyspnea on exertion, paroxysmal nocturnal dyspnea. He has no known medical history and takes no medications daily. He denies having any recent testing with PCP or cardiology, has never had an echo, possibly had a stress test many years ago, has never had a heart catheterization. He was evaluated in the emergency department his labs are significant for a BNP of 3880 creatinine 1.59 GFR 44 glucose 110 chest x-ray showed mildly prominent interstitial markings, blunting of the right costophrenic angle which may indicate a right pleural effusion, hazy right basilar opacification. On exam patient with 1-2+ pitting edema of the lower extremities, also noted to be in new onset atrial fibrillation with rapid ventricular response. In the ER he was given metoprolol, Lasix, therapeutic Lovenox, he will be admitted for suspected new onset CHF and new onset A-fib [id number] 05:44 This 79 yrs old Male presents to ER via Wheelchair with complaints of benita Breathing Difficulty. 05:44 The patient has shortness of breath at rest, with light activity. Onset: The benita symptoms/episode began/occurred 2 week(s) ago. Duration: The symptoms are continuous, and are markedly worse than the original presentation. The patient's shortness of breath is aggravated by exertion, light activity, supine position. Associated signs and symptoms: The patient has no apparent associated signs or symptoms. Severity of symptoms: At their worst the symptoms were moderate in the emergency department the symptoms are unchanged. The patient has experienced similar episodes in the past, several times. Allergies No Known Allergies Allergy (Verified 04/02/24 09:47) Home medications list reviewed: Yes Home Medications: Apixaban [Eliquis] 5 mg PO BID #30 tab 04/04/24 Furosemide [Lasix] 40 mg PO DAILY #30 tab 04/04/24 Iron,Carbonyl/Ascorbic Acid [Iron 100-Vitamin C Tablet] 1 each PO DAILY #30 tab 04/04/24 Sotalol HCl [Sotalol AF] 40 mg PO BID #30 tab 04/04/24 Tamsulosin [Flomax*] 0.4 mg PO DAILY #30 cap 04/04/24 - Past Medical/Surgical History Diabetic: No -: BPH with LUTS -: CKD III (Dr. Esparza/ [facility]) -: Right leg traumatic injury -: Kidney stone removal Psychosocial/ Personal History: Lives at home, alone. - Family History Brother Medical History: Heart disease Father Medical History: Lung disease - Social History Smoking Status: Never smoker Alcohol use: No CD- Drugs: No Caffeine use: Yes Place of Residence: Home Review of Systems 10-point ROS is otherwise unremarkable Physical Examination Temp Pulse Resp BP Pulse Ox 98.3 F 65 18 137/71 98 04/04/24 04:00 04/04/24 04:00 04/04/24 04:00 04/04/24 04:00 04/04/24 04:00 General: In no apparent distress, Oriented x3, Cooperative HEENT: Atraumatic Neck: Supple Respiratory: Normal air movement Cardiovascular: No edema, Regular rate/rhythm Gastrointestinal: Soft and benign, Non-distended Musculoskeletal: No clubbing, No contractures Integumentary: No rashes, No cyanosis Neurological: Normal speech Blood work reviewed in the chart. Imagings Data: [id number] EXAM: XR Chest, 1 View CLINICAL HISTORY: The patient is 79 years old and is Male; COUGH TECHNIQUE: Frontal view of the chest. COMPARISON: No relevant prior studies available. FINDINGS: Lungs: Mildly prominent interstitial markings. Hazy right basilar opacification. Pleural space: Blunting of the right costophrenic angle which may indicate a right pleural effusion. No pneumothorax. Heart: Unremarkable. Mediastinum: Unremarkable. Normal mediastinal contour. Bones/joints: No acute findings. IMPRESSION: 1. Mildly prominent interstitial markings. 2. Blunting of the right costophrenic angle which may indicate a right pleural effusion. 3. Hazy right basilar opacification. [id number] LEFT VENTRICULAR WALL MOTION: MILD GLOBAL HYPOKINESIS. DOPPLER/COLOR FLOW: DIASTOLIC DYSFUNCTION. COMMENTS: 1. MODERATELY DILATED LEFT ATRIUM. 2. MILDLY REDUCED LEFT VENTRICULAR SYSTOLIC FUNCTION. LEFT VENTRICULAR EJECTION FRACTION 40-45%. MILD GLOBAL HYPOKINESIS. 3. DIASTOLIC DYSFUNCTION. 4. MODERATE PULMONARY HYPERTENSION. RIGHT VENTRICULAR SYSTOLIC PRESSURE 50-55 mmHg. 5. ELEVATED FILLING PRESSURES. RIGHT ATRIAL PRESSURE 15-20 mmHg. 6. MILD MITRAL REGURGITATION. DATE OF STUDY: 04/03/2024 HEIGHT: 59 WEIGHT: 199 DIAGNOSIS: ATRIAL FIBRILLATION COMMENTS: 1. NORMAL LEFT ATRIAL APPENDAGE. NO THROMBUS SEEN. 2. MILDLY DILATED LEFT ATRIUM. 3. MILD MITRAL REGURGITATION. Conclusions/Impression: 79 yo male admitted for new onset Afib CKD III with Proteinuria -No NSAIDs Hypokalemia -Replete as ordered Diastolic Systolic CHF, A/C Pulmonary HTN -Continue Lasix Hypoalbuminemia -Consider protein supplementation Anemia in chronic illness Iron Deficiency 3.1% -Consider IV iron BPH with LUTS Urinary Retention -Increase Flomax BID -Continue H[place] Hospitalist, ER and Cardiology notes reviewed Thank you kindly for the consultation
[2024-04-04] MEDS: POTASSIUM CL SA 10 MEQ TAB PO ONE (10:04)
[2024-04-04] MEDS: MAGNESIUM SULFATE 1 gm IVPB 1 GM/100 ML BAG IV ONE (10:04)
[2024-04-04] MEDS: TAMSULOSIN 0.4 MG SR CAP PO SCH (10:04)
[2024-04-04 10:26] VITALS: TEMP 97.5
--- NOTE | 2024-04-04 12:20 | P.PN ---
Subjective Date of Service: 04/04/24 Chief Complaint: New onset CHF/A-fib Subjective: No new changes, No C/O voiced, Tolerating diet, Ambulating, Improving Review of Systems 10-point ROS is otherwise unremarkable Physical Examination - Vital Signs Temperature: 97.5 F Blood Pressure: 126/79 Pulse: 56 Respirations: 14 Pulse Ox (%): 93 - Physical Exam General: Alert, In no apparent distress HEENT: Atraumatic, PERRLA, EOMI Neck: Supple, JVD not distended Respiratory: Clear to auscultation bilaterally, Normal air movement Cardiovascular: Regular rate/rhythm, Normal S1 S2 Gastrointestinal: Normal bowel sounds, No tenderness Musculoskeletal: No tenderness Integumentary: No rashes Neurological: Normal speech, Normal tone, Normal affect Lymphatics: No axilla or inguinal lymphadenopathy - Studies Medications List Reviewed: Yes Assessment And Plan - Current Problems (Diagnosis) (1) Atrial fibrillation Current Visit: Yes Status: Acute Plan: Patient is s/p MARLI DCCV. EKG shows sinus bradycardia lower Sotalol to 40 mg po BID. stop lopressor as patient HR is in the 50s. continue Eliquis 5 mg po BID (2) Acute combined systolic and diastolic heart failure Current Visit: Yes Status: Acute Plan: Patient Echo shows mild reduced LV function, most likely secondary to arrhythmia switch Lasix to 40 mg oral daily BMP in 1 week Continue to montior input and output and electrolytes will repeat echo in 4 weeks, if EF still low then will need ischemia evaluation. if HR better in am then consider starting Coreg 3.125 mg po BID and will consider starting LOLA inhibitors depending on kidney function.
--- NOTE | 2024-04-04 12:21 | RAD REPORT ---
EXAMINATION: US RENAL ULTRASOUND CLINICAL INDICATION: DIRK vs CKD III TECHNIQUE: Real-time ultrasonography of the abdomen was performed. COMPARISON: No prior exam. FINDINGS: RIGHT KIDNEY: Right renal length measurement: 10.5 x 5.2 x 5.1 cm. 4.1 x 3.5 cm slightly complicated cyst is present inferiorly. No solid renal mass. No hydronephrosis. 7 mm calyceal is suspected. LEFT KIDNEY: Left renal length measurement: 10.2 x 5.3 x 5.0 cm. 17 mm benign-appearing cortical cyst . Slightly complicated cystic lesion laterally measuring 3.4 x 2.5 cm. URINARY BLADDER: Numerous bladder stones are present. ADDITIONAL FINDINGS: Prostate appears enlarged. IMPRESSION: Numerous bladder stones are seen. 3.4 cm somewhat complicated cystic lesion involving the left kidney. Follow-up renal ultrasound would be recommended in 6 months to monitor. 7 mm stone right kidney calyx.
[2024-04-04] MEDS: SOD FERRIC GLUC COMPLX/SUCROSE 125 MG in NA CHLORIDE 0.9% 100 ML IV SCH (13:24)
--- NOTE | 2024-04-04 16:15 | P.DS ---
Admission Date: 04/02/24 Discharge Date: 04/04/24 Disposition: ROUTINE DISCHARGE Discharge Condition: GOOD Reason for Admission: New onset CHF/A-fib Brief History of Present Illness: Otherwise healthy 79-year-old male presents to the emergency department with 3- week history of dyspnea on exertion, paroxysmal nocturnal dyspnea. He has no known medical history and takes no medications daily. He denies having any recent testing with PCP or cardiology, has never had an echo, possibly had a stress test many years ago, has never had a heart catheterization. He was evaluated in the emergency department his labs are significant for a BNP of 3880 creatinine 1.59 GFR 44 glucose 110 chest x-ray showed mildly prominent interstitial markings, blunting of the right costophrenic angle which may indicate a right pleural effusion, hazy right basilar opacification. On exam patient with 1-2+ pitting edema of the lower extremities, also noted to be in new onset atrial fibrillation with rapid ventricular response. In the ER he was given metoprolol, Lasix, therapeutic Lovenox, he will be admitted for suspected new onset CHF and new onset A-fib Hospital Course: Assessment: New onset A-fib with RVR Acute CHFunknown EF iron deficiency anemia New onset hypertension Renal insufficiency versus DIRK Patient was admitted to the hospital for new onset A-fib with volume overload/new onset CHF. Echocardiogram was performed which showed EF of 40 to 45% with mild global hypokinesis, moderate pulmonary hypertension, elevated right atrial filling pressures. Mild mitral regurgitation. He was started on sotalol and did not convert chemically, he underwent MARLI cardioversion 04/03/2024 which was successful. He was also started on Eliquis. Patient was diuresed with IV Lasix, volume status is much improved. He will be started on Lasix 40 mg by mouth once daily. He also developed urinary retention on admission, Hinton catheter was placed, patient was started on Flomax and catheter has been discontinued. Patient voiding without difficulty now, will need prescription for Flomax which we will be sent to his pharmacy. Patient was also noted to have iron deficiency anemia iron is 12 TSAT percentage is 3.1 ferritin 8.2. He reports an episode few months ago where he was having abdominal pain and melena, he treated himself at home for what was suspected to be gastric ulcer and is symptoms have since resolved. We did discuss the importance of colonoscopies and recommend when outpatient. He was given 1 dose of IV iron in the hospital and will be recommended to take oral iron at home. Please follow-up with cardiologyDr. Ferguson in 1 week for reevaluation, repeat BMP Please follow-up with Dr. Esparza kidney doctor to monitor your kidney function. Please follow-up with primary care doctor or establish yourself with 1 in the area in the next 1 to 2 weeks. Prescriptions for sotalol-medicine to keep your heart beating normal Eliquis-blood thinner to reduce risk of stroke Flomax-to make it easier for you to pee Lasix pill to help keep the fluid off you And iron Sent to [facility] in [place] Vital Signs/Physical Exam: Temp Pulse Resp BP Pulse Ox 97.5 F 56 14 126/79 93 04/04/24 12:20 04/04/24 12:20 04/04/24 12:20 04/04/24 12:20 04/04/24 12:20 General: Alert, In no apparent distress, Oriented x3 HEENT: Atraumatic, PERRLA Neck: Supple, JVD not distended Respiratory: Clear to auscultation bilaterally, Normal air movement Cardiovascular: Regular rate/rhythm, Normal S1 S2 Gastrointestinal: Normal bowel sounds, No tenderness Musculoskeletal: No tenderness Integumentary: No rashes Neurological: Normal speech, Normal tone, Normal affect Laboratory Data at Discharge: WBC 8.00 thou/uL (4.3-10.9) 04/04/24 04:00 Hgb 9.0 g/dL (13.6-17.9) L 04/04/24 04:00 Hct 28.5 % (39.6-49.0) L 04/04/24 04:00 Plt Count 248 thou/uL (152-406) 04/04/24 04:00 PT 14.6 SECONDS (9.4-12.5) H 04/02/24 05:33 INR 1.31 04/02/24 05:33 Sodium 141 mEq/L (136-145) 04/04/24 04:00 Potassium 3.8 mEq/L (3.5-5.1) 04/04/24 04:00 BUN 35 mg/dL (7-18) H 04/04/24 04:00 Creatinine 1.67 mg/dL (0.70-1.30) H 04/04/24 04:00 Glucose 90 mg/dL (74-106) 04/04/24 04:00 Magnesium 1.8 mg/dL (1.6-2.4) 04/04/24 04:00 Total Bilirubin 0.8 mg/dL (0.2-1.0) 04/02/24 05:33 AST 11 U/L (15-37) L 04/02/24 05:33 ALT 18 U/L (16-61) 04/02/24 05:33 Alkaline Phosphatase 69 U/L (45-117) 04/02/24 05:33 Lipase 68 U/L (13-75) 04/02/24 05:33 Home Medications: Apixaban [Eliquis] 5 mg PO BID #30 tab 04/04/24 Furosemide [Lasix] 40 mg PO DAILY #30 tab 04/04/24 Iron,Carbonyl/Ascorbic Acid [Iron 100-Vitamin C Tablet] 1 each PO DAILY #30 tab 04/04/24 Sotalol HCl [Sotalol AF] 40 mg PO BID #30 tab 04/04/24 Tamsulosin [Flomax*] 0.4 mg PO DAILY #30 cap 04/04/24 New Medications: Apixaban [Eliquis] 5 mg PO BID #30 tab Tamsulosin [Flomax*] 0.4 mg PO DAILY #30 cap Iron,Carbonyl/Ascorbic Acid [Iron 100-Vitamin C Tablet] 1 each PO DAILY #30 tab Furosemide [Lasix] 40 mg PO DAILY #30 tab Sotalol HCl [Sotalol AF] 40 mg PO BID #30 tab Physician Discharge Instructions: Patient was admitted to the hospital for new onset A-fib with volume overload/new onset CHF. Echocardiogram was performed which showed EF of 40 to 45% with mild global hypokinesis, moderate pulmonary hypertension, elevated right atrial filling pressures. Mild mitral regurgitation. He was started on sotalol and did not convert chemically, he underwent MARLI cardioversion 04/03/2024 which was successful. He was also started on Eliquis. Patient was diuresed with IV Lasix, volume status is much improved. He will be started on Lasix 40 mg by mouth once daily. He also developed urinary retention on admission, [place] catheter was placed, patient was started on Flomax and catheter has been discontinued. Patient voiding without difficulty now, will need prescription for Flomax which we will be sent to his pharmacy. Patient was also noted to have iron deficiency anemia iron is 12 TSAT percentage is 3.1 ferritin 8.2. He reports an episode few months ago where he was having abdominal pain and melena, he treated himself at home for what was suspected to be gastric ulcer and is symptoms have since resolved. We did discuss the importance of colonoscopies and recommend when outpatient. He was given 1 dose of IV iron in the hospital and will be recommended to take oral iron at home. Please follow-up with cardiologyDr. Ferguson in 1 week for reevaluation, repeat BMP Please follow-up with Dr. Esparza kidney doctor to monitor your kidney function. Please follow-up with primary care doctor or establish yourself with 1 in the area in the next 1 to 2 weeks. Prescriptions for sotalol-medicine to keep your heart beating normal Eliquis-blood thinner to reduce risk of stroke Flomax-to make it easier for you to pee Lasix pill to help keep the fluid off you And iron Sent to [facility] in [place] Diet: Regular Activity: Ad rica Followup: Arash Esparza DO [ACTIVE - CAN ADMIT] - 1 Week Tad Ferguson MD [ACTIVE - CAN ADMIT] - 1 Week Sky Skelton MD [Primary Care Provider] - 1 Week Time spent managing pt's care (in minutes): 45
[2024-04-04 16:24] VITALS: BP 117/73
[2024-04-04] MEDS ORDERED: SOTALOL HCL 80 MG TAB PO SCH (18:00)
--- NOTE | 2024-04-05 11:33 | EKG ---
Test Date: 2024-04-03 Test Time: 09:51:01 Law Clerk: HARDIK MEASUREMENT RESULTS: Intervals: Rate: 41 MT: 196 QRSD: 98 QT: 598 QTc: 493 [place]: P: 35 MT: 196 QRS: 28 T: 76 INTERPRETIVE STATEMENTS: Marked sinus bradycardia with premature supraventricular complexes Nonspecific T wave abnormality Prolonged QT Abnormal ECG Compared to ECG 01/16/2002 09:48:00 Atrial premature complex(es) now present T-wave abnormality now present Prolonged QT interval now present Sinus rhythm no longer present Electronically Signed On 04-05-24 11:30:36 PRACTICAL MINISTRIES PROFESSOR by Tad Ferguson
--- NOTE | 2024-04-05 11:38 | EKG ---
Test Date: 2024-04-02 Test Time: 05:17:07 Chainstitch Felled Seam Operator: AF MEASUREMENT RESULTS: Intervals: Rate: 125 ID: QRSD: 138 QT: 384 QTc: 554 [place]: P: ID: QRS: [id number] T: 20 INTERPRETIVE STATEMENTS: Atrial fibrillation with rapid ventricular response Right bundle branch block Abnormal ECG Compared to ECG 01/16/2002 09:48:00 Right bundle-branch block now present Sinus rhythm no longer present Electronically Signed On 04-05-24 11:36:43 [employer] by Tad Ferguson
[2024-04-05] MEDS ORDERED: SOD FERRIC GLUC COMPLX/SUCROSE 125 MG in NA CHLORIDE 0.9% 100 ML IV SCH (13:00)
--- NOTE | 2024-04-06 15:47 | EKG ---
Test Date: 2024-04-03 Test Time: 06:01:18 [place]ace Operator: IGGY MEASUREMENT RESULTS: Intervals: Rate: 82 OK: QRSD: 142 QT: 460 QTc: 537 [place]: P: OK: QRS: -2 T: -15 INTERPRETIVE STATEMENTS: Atrial fibrillation with premature ventricular or aberrantly conducted complexes Right bundle branch block Abnormal ECG Compared to ECG 04/02/2024 05:17:07 Ventricular premature complex(es) now present Electronically Signed On 04-06-24 15:46:13 CLINICAL LABORATORY MEDICAL DIRECTOR by Tad Ferguson
== END 2024-04-04 18:00 | disposition home or self-care (01) | DRG 291 ==
LOC: ER 05:05 → 2ND 07:13
PROVIDERS: ADMIT Internal Medicine; ATTEND Hospitalist
PROC: 5A2204Z Restoration of Cardiac Rhythm, Single (ICD-10-PCS; principal; 2024-04-03)
DX: I13.0 Hypertensive heart and chronic kidney disease with heart failure and stage 1 through stage 4 chronic kidney disease, or unspecified chronic kidney disease (principal); I50.41 Acute combined systolic (congestive) and diastolic (congestive) heart failure; N17.9 Acute kidney failure, unspecified; I48.19 Other persistent atrial fibrillation; N18.30 Chronic kidney disease, stage 3 unspecified; Z79.01 Long term (current) use of anticoagulants; J10.1 Influenza due to other identified influenza virus with other respiratory manifestations; I27.20 Pulmonary hypertension, unspecified; I34.0 Nonrheumatic mitral (valve) insufficiency; R33.9 Retention of urine, unspecified; N40.1 Benign prostatic hyperplasia with lower urinary tract symptoms; E87.5 Hyperkalemia; D50.9 Iron deficiency anemia, unspecified
CPT/HCPCS: 01922; 36415; 71045; 76770; 80048; 80076; 81001; 82728; 83540; 83690; 83735; 83880; 84132; 84443; 84466; 84484; 85025; 85610; 87804; 87811; 92960; 93005; 93306; 93312; 96365; 96372; 96375; 99285; J1160; J1650; J1940; J2003; J2704; J2916; J3475; J7040

== ENCOUNTER 2024-05-29 11:19 | Emergency (ER) | payer OTHER ==
[2024-05-29 12:10] LABS: Absolute Basophils 0.1 K/uL (0-0.5); Absolute Eosinophils 0.1 K/uL (0-0.5); Absolute Lymphocytes (CBC) 0.9 K/uL (0.7-4.9); Absolute Monocytes 0.9 K/uL (0.1-1.3); Absolute Neutrophil 8.8 K/uL (1.8-8.0); Basophils % 0.5 % (0-1.3); Eosinophils % 0.6 % (0-4.4); Hematocrit 24.2 % (39.6-49.0); Hemoglobin 7.7 g/dL (13.6-17.9); Lymphocytes % 8.7 % (15.3-44.8); MCH 22.1 pg (27.0-35.0); MPV 7.6 fL (7.6-11.3); Neutrophils % 82.2 % (41.7-73.7); Platelets 376 thou/uL (152-406); RBC Red Blood Cell Count 3.51 M/uL (4.33-5.43); Red Cell Distribution Width 20.1 % (12.1-15.2)
[2024-05-29 12:34] LABS: Specific Gravity 1.007 (1.005-1.030); Sqamous Epithelial None Seen /HPF (None Seen); Urine Bacteria <20 /HPF (<20); Urine Bilirubin NEGATIVE (Negative); Urine Blood 1+ (Negative); Urine Clarity Turbid (Clear); Urine Color Colorless (Yellow); Urine Culture Reflex Order NOT NEEDED; Urine Glucose NEGATIVE (Negative); Urine Ketones NEGATIVE (Negative); Urine Micro Reflex YN NO BILL MICROSCOPIC; Urine Mucus Slight /HPF (None Seen); Urine Nitrite NEGATIVE (Negative); Urine Protein NEGATIVE (Negative); Urine RBC 21-50 /HPF (None Seen); Urine Urobilinogen Normal (Normal); Urine WBC <5 /HPF (<5); Urine pH 5.5 (5.0-7.0)
[2024-05-29 12:38] LABS: Anion Gap 9.9 mEq/L (5.0-15.0); Potassium 3.9 mEq/L (3.5-5.1)
--- NOTE | 2024-05-29 12:45 | ER ---
Nurse's Notes [facility] Name: Michele Kent Jr Age: 79 yrs Sex: Male : 1945 Arrival Date: 05/29/2024 Time: 11:19 Bed 6 Private MD: Diagnosis: Urinary retention;Anemia, unspecified;Essential (primary) hypertension Presentation: 05/29 11:56 Chief complaint: Patient states: has not urinated since last night at 9pm. Coronavirus iw screen: At this time, the client does not indicate any symptoms associated with coronavirus-19. Ebola Screen: No symptoms or risks identified at this time. Initial Sepsis Screen: Does the patient meet any 2 criteria? No. Patient's initial sepsis screen is negative. Does the patient have a suspected source of infection? No. Patient's initial sepsis screen is negative. Risk Assessment: Do you want to hurt yourself or someone else? Patient reports no desire to harm self or others. Onset of symptoms was May 29, 2024. 11:56 Method Of Arrival: Ambulatory iw 11:56 Acuity: OANH 3 iw Historical: - PMHx: 11:57 hard hearing; Hypertensive disorder; iw - Immunization history:: Adult Immunizations up to date. - Infectious Disease History:: Denies. - Social history:: Smoking status: Patient/guardian denies using tobacco, but has a distant history of tobacco abuse. Screenin:05 [facility] ED Fall Risk Assessment (Adult) History of falling in the last 3 months, ko1 including since admission No falls in past 3 months (0 pts) Confusion or Disorientation No (0 pts) Intoxicated or Sedated No (0 pts) Impaired Gait No (0 pts) Mobility Assist Device Used No (0 pt) Altered Elimination No (0 pt) Score/Fall Risk Level 0 - 2 = Low Risk Oriented to surroundings, Maintained a safe environment, Educated pt \T\ family on fall prevention, incl call for assistance when getting out of bed, Assessed \T\ reinforced patient's understanding of fall precautions, Hourly rounding (assess needs \T\ fall precautionary measures) done. Abuse screen: Denies threats or abuse. Denies injuries from another. Nutritional screening: No deficits noted. Tuberculosis screening: No symptoms or risk factors identified. Assessment: 12:05 General: Appears in no apparent distress. uncomfortable, Behavior is calm, cooperative, ko1 appropriate for age. Pain: Complains of pain in suprapubic area. Neuro: No deficits noted. Cardiovascular: No deficits noted. Respiratory: No deficits noted. GI: No deficits noted. No signs and/or symptoms were reported involving the gastrointestinal system. : Reports inability to void. EENT: No deficits noted. No signs and/or symptoms were reported regarding the EENT system. Derm: No deficits noted. No signs and/or symptoms reported regarding the dermatologic system. Musculoskeletal: No deficits noted. No signs and/or symptoms reported regarding the musculoskeletal system. 13:38 Reassessment: Patient appears in no apparent distress at this time. Patient and/or iw family updated on plan of care and expected duration. Pain level reassessed. Patient is alert, oriented x 3, equal unlabored respirations, skin warm/dry/pink. Patient states feeling better. Patient states symptoms have improved. Vital Signs: 11:56 BP 159 / 96; Pulse 72; Resp 16; Temp 97; Pulse Ox 97% on R/A; iw 12:05 BP 145 / 84; Pulse 70; Resp 15; Pulse Ox 98% ; ko1 13:38 BP 135 / 89; Pulse 68; Resp 16; Pulse Ox 99% on R/A; iw ED Course: 11:26 Patient arrived in ED. al6 11:26 Gopi Anaya DO is Attending Physician. ms3 11:57 Triage completed. iw 11:58 Mahi Isaac, RN is Primary Nurse. ko1 12:05 No provider procedures requiring assistance completed. ko1 12:05 Patient has correct armband on for positive identification. Bed in low position. Call ko1 light in reach. Side rails up X 1. Provided Education on: meds. Pulse ox on. NIBP on. Door closed. Noise minimized. Lights dimmed. Warm blanket given. Pillow given. 12:05 Arm band placed on right wrist. Patient placed in an exam room, on a stretcher, on ko1 pulse oximetry, Patient notified of wait time. 12:09 BMP Sent. ko1 12:09 CBC with Diff Sent. ko1 12:09 Urinalysis W/Microscopic Sent. ko1 12:09 Initial lab(s) drawn, by nc, sent to lab. Urine collected: Ya catheter specimen, ko1 clear. Ya cath inserted, using sterile technique, 16 Fr., by nc, balloon inflated, to gravity drainage, urine specimen collected. returned clear yellow urine. Patient tolerated well. Inserted saline lock: 20 gauge in right antecubital area, using aseptic technique. Blood collected. Flushed with 10 mL NS. 12:42 Manuel Malave MD is Referral Physician. ms3 13:33 IV discontinued, intact, bleeding controlled, No redness/swelling at site. Pressure ko1 dressing applied. Administered Medications: No medications were administered Medication: 12:05 VIS not applicable for this client. ko1 Output: 13:36 Urine: 850ml (Ya); Total: 850ml. ko1 Outcome: 12:44 Discharge ordered by MD. ms3 13:37 Discharged to home via wheelchair, ko1 13:37 Condition: stable 13:37 Discharge instructions given to patient, Instructed on discharge instructions, follow up and referral plans. medication usage, ya care, leg bag Demonstrated understanding of instructions, follow-up care, medications, ya/leg bag care Prescriptions given X 1, 13:39 Patient left the ED. ko1 Signatures: Kayla Lucero, RN RN iw Gopi Anaya DO DO ms3 Mahi Isaac RN RN ko1 Felicity Sanches6
--- NOTE | 2024-05-29 12:45 | EDPHYS ---
Physician Documentation [facility] Name: Michele Kent Jr Age: 79 yrs Sex: Male : 1945 Arrival Date: 05/29/2024 Time: 11:19 Bed 6 Private MD: ED Physician Gopi Anaya HPI: 05/29 11:48 This 79 yrs old Male presents to ER via Unassigned with complaints of Urinary Problem. ms3 11:48 79-year-old male with past medical history of atrial fibrillation [place] [facility] [place] for urinary retention. Patient states he has had this occur 1 time previously. Patient states he has been attempting to urinate since this morning and cannot. His pain is a 9/10 located in the suprapubic region. He denies fevers, chills, nausea, vomiting.. Historical: - PMHx: 11:57 hard hearing; Hypertensive disorder; iw - Immunization history:: Adult Immunizations up to date. - Infectious Disease History:: Denies. - Social history:: Smoking status: Patient/guardian denies using tobacco, but has a distant history of tobacco abuse. ROS: 11:48 Constitutional: Negative for fever, and chills. Cardiovascular: Negative for chest ms3 pain, and palpitations. Respiratory: Negative for shortness of breath, cough, wheezing, and pleuritic chest pain, Abdomen/GI: Negative for abdominal pain, nausea, vomiting, diarrhea, and constipation, MS/Extremity: Negative for injury and deformity, 11:48 : Positive for Urinary retention, Exam: 11:48 Constitutional: This is a well developed, well nourished patient who is awake, alert, ms3 and in no acute distress. Cardiovascular: Regular rate and rhythm with a normal S1 and S2. No gallops, murmurs, or rubs. Normal PMI, no JVD. No pulse deficits. Respiratory: Lungs have equal breath sounds bilaterally, clear to auscultation and percussion. No rales, rhonchi or wheezes noted. No increased work of breathing, no retractions or nasal flaring. 11:48 Abdomen/GI: Inspection: abdomen appears normal, Bowel sounds: normal, Palpation: moderate abdominal tenderness, in the suprapubic area, Vital Signs: 11:56 BP 159 / 96; Pulse 72; Resp 16; Temp 97; Pulse Ox 97% on R/A; iw 12:05 BP 145 / 84; Pulse 70; Resp 15; Pulse Ox 98% ; ko1 13:38 BP 135 / 89; Pulse 68; Resp 16; Pulse Ox 99% on R/A; iw MDM: 11:48 Differential diagnosis: nonspecific abdominal pain, UTI, urinary retention. ms3 12:13 Medical Screening Exam initiated ms3 12:45 Data reviewed: vital signs, nurses notes, lab test result(s), and as a result, I will ms3 discharge patient. Counseling: I had a detailed discussion with the patient and/or guardian regarding the historical points, exam findings, and any diagnostic results supporting the discharge/admit diagnosis, lab results, the need for outpatient follow up, to return to the emergency department if symptoms worsen or persist or if there are any questions or concerns that arise at home. Special discussion: I discussed with the patient/guardian in detail that at this point there is no indication for admission to the hospital. It is understood, however, that if the symptoms persist or worsen the patient needs to return immediately for re-evaluation. ED course: Discussed labs with patient. Discussed low hgb with patient and he states that is a known problem and he has required blood transfusions in the past. He denies shortness of breath, lightheadedness, black or bloody stools. Patient denies taking Flomax or other prostate medications. Patient given Rx for Tamsulosin. On re-eval patient is a/o x4, nad, non-toxic, speaking full sentences. Patient to follow up with Dr Malave in 2-3 days. Patient understands/ agrees with plan. All questions answered. Return precautions discussed to include worsening symptoms, or any other concerns.. 05/29 11:28 Order name: Urinalysis W/Microscopic; Complete Time: 12:38 ms3 05/29 11:46 Order name: CBC with Diff; Complete Time: 13:25 ms3 05/29 11:46 Order name: BMP; Complete Time: 12:38 ms3 05/29 13:25 Order name: CBC Smear Scan; Complete Time: 13:25 EDMS 05/29 11:46 Order name: [place]; Complete Time: 12:09 ms3 Administered Medications: No medications were administered Disposition Summary: 05/29/24 12:44 Discharge Ordered Notes: Location: Home ms3 Condition: Stable ms3 Diagnosis - Urinary retention ms3 - Anemia, unspecified ms3 - Essential (primary) hypertension ms3 Followup: ms3 - With: Manuel Malave MD - When: 2 - 3 days - Reason: Recheck today's complaints Discharge Instructions: - Discharge Summary Sheet ms3 - Anemia ms3 - Hypertension, Adult ms3 - Acute Urinary Retention, Male ms3 - Acute Urinary Retention, Male, [id number] ms3 - DASH Eating Plan ms3 - Indwelling Urinary Catheter Care, Adult, [id number] ms3 Forms: - Medication Reconciliation Form ms3 - Antibiotic Education ms3 - Prescription Opioid Use ms3 - Patient Portal Instructions ms3 - Leadership Thank You Letter ms3 Prescriptions: - tamsulosin 0.4 mg Oral capsule - take 1 capsule ORAL route daily; 20 capsule; Refills: 0, Product Selection ms3 Permitted Signatures: Dispatcher [employer] EDMS Kayla Lucero RN RN iw Sims, Marcus, DO DO ms3 Mahi Isaac RN RN ko1 Corrections: (The following items were deleted from the chart) 11:47 11:47 CBC+H.LAB.BRZ ordered. EDMS EDMS 11:47 11:47 BASIC METABOLIC PANEL+C.LAB.BRZ ordered. EDMS EDMS
[2024-05-29 13:24] LABS: Anisocytosis 1+; Blood Morphology Comment NOTED (NOT SEEN); Hypochromasia 1+; Microcytosis 1+; Ovalocytes 1+; Platelet Estimate ADEQ; White Blood Cell Scan OK (OK)
[2024-05-29 15:58] VITALS: TEMP 97
[2024-05-29 16:00] VITALS: BP 135/89; O2SAT 99
== END 2024-05-29 13:39 | disposition home or self-care (01) ==
LOC: ER 11:19
DX: R33.9 Retention of urine, unspecified (principal); D64.9 Anemia, unspecified; I10 Essential (primary) hypertension
CPT/HCPCS: 36415; 80048; 81001; 85025

== ENCOUNTER 2024-06-27 06:36 | Emergency (ER) | payer OTHER ==
--- OUTSIDE RECORDS SUMMARY | 2024-06-27 06:38 | XMS REPORT | Continuity of Care Document ---
Author Name Unknown Address [address] [place] [address] [facility] Address [address] [place] [address] Care Team Providers Care Change Of Address Clerk Name Role Phone Unavailable Unavailable Unavailable Problems Condition Name Condition Details Condition Category Status Onset Date Resolution Date Last Treatment Date Treating Clinician Comments Source [id number] Acute urinary retention Problem [facility] [id number] Other obstructiv e and reflux uropathy Problem [facility] [id number] Benign prostatic hyperplasi a with lower urinary tract symptoms Problem [facility] Social History Social Habit Start Date Stop Date Quantity Comments Source History of Tobacco Use [facility] Sex Assigned At [facility] Smoking Status Start Date Stop Date Source Never Smoker [facility] Medications Ordered Medication Name Filled Medication Name Start Date Stop Date Current Medication? Ordering Clinician Indication Dosage Frequency Signature (SIG) Comments Components Source Flomax 0.4 MG Flomax 0.4 MG 2- 00:00: 00 No 2{capsu les} QD Flomax 0.4 MG Sotalol HCl (AF) 80 MG Sotalol HCl (AF) 80 MG No Sotalol HCl (AF) 80 MG Tamsulosin HCl 0.4 MG Tamsulosin HCl 0.4 MG No Tamsulosin HCl 0.4 MG Eliquis 5 MG Eliquis 5 MG No Eliquis 5 MG Furosemide 40 MG Furosemide 40 MG No Furosemide 40 MG Vital Signs Vital Name Observation Time Observation Value Comments S ource height 2024-06-13 09:00:00 71 [in_i] Commo n [facility] weight 2024-06-13 09:00:00 179.0 [lb_av] Co mmon [facility] temperature 2024-06-13 09:00:00 97.3 [degF] Com mon [facility] bmi 2024-06-13 09:00:00 24.96 kg/m2 Comm on [facility] oximetry 2024-06-13 09:00:00 97 % Commo n [facility] respiratory rate 2024-06-13 09:00:00 18 /min [facility] blood pressure systolic 2024-06-13 09:00:00 119 mm[Hg] [facility] blood pressure diastolic 2024-06-13 09:00:00 62 mm[Hg] [facility] Encounters Start Date/Time End Date/Time Encounter Type Admission Type Attending [facility] Care Facility Care Department Encounter ID Source 2024-06-13 08:26:01 Outpatient [facility] [id number] [facility] 2024-06-13 00:00:00 2024-06-13 00:00:00 OFFICE VISIT NEW PT LEVEL 4 [facility] [id number] [facility]
[2024-06-27 07:53] LABS: Specific Gravity 1.008 (1.005-1.030); Sqamous Epithelial <5 /HPF (None Seen); Transitional Epithelial <5 /HPF (None Seen); Urine Bacteria <20 /HPF (<20); Urine Bilirubin NEGATIVE (Negative); Urine Blood 2+ (Negative); Urine Clarity Turbid (Clear); Urine Color Colorless (Yellow); Urine Culture Reflex Order REFLEXED; Urine Glucose NEGATIVE (Negative); Urine Ketones NEGATIVE (Negative); Urine Microscopic Reflex YN ORDER UMIC; Urine Mucus Slight /HPF (None Seen); Urine Nitrite NEGATIVE (Negative); Urine Protein 1+ (Negative); Urine RBC 21-50 /HPF (None Seen); Urine Urobilinogen Normal (Normal); Urine WBC 20-50 /HPF (<5); Urine pH 6.5 (5.0-7.0)
--- NOTE | 2024-06-27 08:06 | EDPHYS ---
Physician Documentation [facility] Name: Michele Kent Jr Age: 79 yrs Sex: Male : 1945 Arrival Date: 06/27/2024 Time: 06:36 Bed 6 Private MD: ED Physician Rich Keith HPI: 06/27 07:15 This 79 yrs old Male presents to ER via Wheelchair with complaints of Urinary Retention.rn 07:15 The patient presents with urinary symptoms, retention, unable to void. Onset: The rn symptoms/episode began/occurred this morning. Modifying factors: The symptoms are alleviated by nothing, the symptoms are aggravated by nothing. Severity of symptoms: At their worst the symptoms were moderate, in the emergency department the symptoms are unchanged. The patient has experienced a previous episode. The patient has been recently seen by a physician:. Patient reports urinary retention, unable to urinate since earlier this morning. Patient reports seen recently for the same in the emergency room, [place] catheter placed, just saw urology yesterday at [place] catheter was pulled out. Was able to urinate following removal of catheter but with time has become more painful and now cannot urinate. No fever or chills.. Historical: - Allergies: 07:04 No Known Allergies; br2 - Immunization history:: Adult Immunizations up to date. - Infectious Disease History:: Denies. - Social history:: Smoking status: Patient denies any tobacco usage or history of. - Family history:: not pertinent. - Hospitalizations: : No recent hospitalization is reported. ROS: 07:15 Constitutional: Negative for fever, chills, and weight loss, Abdomen/GI: Negative for rn abdominal pain, nausea, vomiting, diarrhea, and constipation, : Positive for urinary retention and dysuria Exam: 07:15 Constitutional: This is a well developed, well nourished patient who is awake, alert, rn and in no acute distress. Abdomen/GI: Soft, nontender Vital Signs: 06:55 BP 136 / 78; Pulse 64; Resp 18; Temp 97.7; Pulse Ox 99% on R/A; Weight 81.65 kg; Height br2 5 ft. 10 in. ; Pain 10/10; 08:35 BP 103 / 72; Pulse 78; Resp 16; Pulse Ox 100% on R/A; id 06:55 Body Mass Index 25.83 (81.65 kg, 177.8 cm) br2 06:55 Pain Scale: Adult br2 MDM: 06:58 Medical Screening Exam initiated rn 08:05 Differential diagnosis: UTI, urinary retention. Data reviewed: vital signs, nurses rn notes, lab test result(s), and as a result, I will discharge patient. Counseling: I had a detailed discussion with the patient and/or guardian regarding the historical points, exam findings, and any diagnostic results supporting the discharge/admit diagnosis, lab results, the need for outpatient follow up, to return to the emergency department if symptoms worsen or persist or if there are any questions or concerns that arise at home. Response to treatment: the patient's symptoms have markedly improved after treatment. Special discussion: I discussed with the patient/guardian in detail that at this point there is no indication for admission to the hospital. It is understood, however, that if the symptoms persist or worsen the patient needs to return immediately for re-evaluation. 06/27 07:01 Order name: Urinalysis w/ reflexes; Complete Time: 08:05 rn 06/27 07:57 Order name: Urine Culture [facility] 06/27 07:01 Order name: [place]; Complete Time: 07:37 rn Administered Medications: No medications were administered Disposition Summary: 06/27/24 08:46 Discharge Ordered Notes: Location: Home(06/27/24 08:46) rn Problem: new(06/27/24 08:46) rn Symptoms: have improved(06/27/24 08:46) rn Condition: Stable(06/27/24 08:46) rn Diagnosis - Retention of urine, unspecified(06/27/24 08:46) rn - UTI/ Urinary tract infection, site not specified(06/27/24 08:46) rn Followup: rn - With: Private Physician - When: As needed - Reason: Recheck today's complaints, Re-evaluation by your physician Discharge Instructions: - Discharge Summary Sheet rn - Indwelling Urinary Catheter Care, Adult rn - Acute Urinary Retention, Male rn - Urinary Tract Infection, Adult rn Forms: - Medication Reconciliation Form rn - Antibiotic returned goods sorter - Prescription Opioid Use rn - Patient Portal Instructions rn - Leadership Thank You Letter rn Prescriptions: - Cipro 500 mg Oral Tablet - take 1 tablet ORAL route every 12 hours for 7 days; 14 tablet; Refills: 0, rn Product Selection Permitted Signatures: Dispatcher [employer] Rich Whitehead MD MD rn Riddle, Belinda RN RN br2 Corrections: (The following items were deleted from the chart) 08:37 08:06 Home rn id 08:37 08:06 new rn id 37 08:06 have improved rn id :37 08:06 Stable rn id 37 08:06 Retention of urine, unspecified rn id 37 08:06 UTI/ Urinary tract infection, site not specified rn id
--- NOTE | 2024-06-27 08:06 | ER ---
Nurse's Notes [facility] Name: Michele Kent Jr Age: 79 yrs Sex: Male : 1945 Arrival Date: 06/27/2024 Time: 06:36 Bed 6 Private MD: Diagnosis: Retention of urine, unspecified;UTI/ Urinary tract infection, site not specified Presentation: 06/27 06:55 Chief complaint: Patient states: PT STATES HAVING TROUBLE URINATING AND C/O LOWER br2 PELVIC PAIN. PT HAD DEL ROSARIO CATHETER REMOVED YESTERDAY BY UROLOGIST, BUT LAST TIME HE VOIDED COMPLETELY WAS AT MIDNIGHT. PT STATES HE HAS BEEN TAKING HIS FLOMAX ORDERED. Coronavirus screen: Client denies travel out of the [place] in the last 14 days. Ebola Screen: Patient denies exposure to infectious person. Initial Sepsis Screen: Does the patient meet any 2 criteria? No. Patient's initial sepsis screen is negative. Does the patient have a suspected source of infection? No. Patient's initial sepsis screen is negative. Risk Assessment: Do you want to hurt yourself or someone else? Patient reports no desire to harm self or others. Onset of symptoms was June 27, 2024 at 00:00. 06:55 Method Of Arrival: Wheelchair br2 06:55 Acuity: OANH 3 br2 Triage Assessment: 07:04 General: Appears uncomfortable, Behavior is calm, cooperative. Pain: Complains of pain br2 in suprapubic area Pain currently is 10 out of 10 on a pain scale. Historical: - Allergies: 07:04 No Known Allergies; br2 - Immunization history:: Adult Immunizations up to date. - Infectious Disease History:: Denies. - Social history:: Smoking status: Patient denies any tobacco usage or history of. - Family history:: not pertinent. - Hospitalizations: : No recent hospitalization is reported. Screenin:37 [facility] ED Fall Risk Assessment (Adult) History of falling in the last 3 months, ph including since admission No falls in past 3 months (0 pts) Confusion or Disorientation No (0 pts) Intoxicated or Sedated No (0 pts) Impaired Gait No (0 pts) Mobility Assist Device Used No (0 pt) Altered Elimination No (0 pt) Score/Fall Risk Level 0 - 2 = Low Risk Oriented to surroundings, Maintained a safe environment, Hourly rounding (assess needs \T\ fall precautionary measures) done. Abuse screen: Denies threats or abuse. Denies injuries from another. Nutritional screening: No deficits noted. Tuberculosis screening: No symptoms or risk factors identified. Assessment: 07:30 General: Appears uncomfortable, Behavior is cooperative, appropriate for age. Pain: ph Complains of pain in suprapubic area. Neuro: Level of Consciousness is awake, alert, obeys commands, Oriented to person, place, time, situation. Cardiovascular: Capillary refill < 3 seconds in bilateral fingers Patient's skin is warm and dry. Respiratory: Airway is patent Respiratory effort is even, unlabored. : Reports inability to void, since yesterday. Vital Signs: 06:55 BP 136 / 78; Pulse 64; Resp 18; Temp 97.7; Pulse Ox 99% on R/A; Weight 81.65 kg; Height br2 5 ft. 10 in. ; Pain 10/10; 08:35 BP 103 / 72; Pulse 78; Resp 16; Pulse Ox 100% on R/A; id 06:55 Body Mass Index 25.83 (81.65 kg, 177.8 cm) br2 06:55 Pain Scale: Adult br2 ED Course: 06:37 Patient arrived in ED. jj6 06:58 Rich Keith MD is Attending Physician. rn 07:01 Triage completed. br2 07:04 Arm band placed on right wrist. br2 07:36 Raquel Velazquez, RN is Primary Nurse. ph 07:36 Urine collected: Del Rosario catheter specimen, clear. Del Rosario cath inserted, using sterile ph technique, 16 Fr., by ms, balloon inflated, to gravity drainage, urine specimen collected. returned clear yellow urine. Patient tolerated well. 07:37 Urinalysis w/ reflexes Sent. ph 07:47 Patient has correct armband on for positive identification. Bed in low position. Call ph light in reach. Side rails up X 1. Pulse ox on. NIBP on. 08:39 No provider procedures requiring assistance completed. id 08:40 Provided Education on: Indwelling del rosario catheter care. id 08:40 Patient did not have IV access during this emergency room visit. id Administered Medications: No medications were administered Medication: 07:46 VIS not applicable for this client. ph Outcome: 08:06 Discharge ordered by . rn 08:38 Discharged to home ambulatory, id 08:38 Condition: stable 08:38 Discharge instructions given to Instructed on Demonstrated understanding of instructions, follow-up care, medications, Prescriptions given X 1, 08:46 Discharge ordered by . rn 08:55 Patient left the ED. ph Signatures: Rich Keith MD MD rn Hall, Patricia, RN RN ph Apple Walton Belinda, RN RN br2 Ana Mayorga RN RN id
[2024-06-27 08:59] VITALS: TEMP 97.7
[2024-06-27 09:00] VITALS: BP 103/72; O2SAT 100
== END 2024-06-27 08:55 | disposition home or self-care (01) ==
LOC: ER 06:36
DX: N39.0 Urinary tract infection, site not specified (principal)
CPT/HCPCS: 51702; 81001; 87086; 87088; 99284